=== PATIENT | female | born 1980 | race Caucasian/White ===

== ENCOUNTER 2017-10-29 11:48 | Emergency (ER) | payer MEDICAID, SELFPAY ==
[2017-10-29 11:48] VITALS: BP 149/94; PULSE 98; RESP 14; TEMP 36.3; BMI 31.0
--- NOTE | 2017-10-29 12:03 | ED.DCSUM_ITS ---
- ER Visit Summary Date of Service: 10/29/17 Chief Complaint: Left eye pain History of Present Illness: The patient is a 36 F presents to the emergency department left eye pain. Patient put her contacts in on . She fell asleep with them in. When she woke Monday she took them out. She really had only minimal pain in the left eye. Over the past 2 days the pain is worsened. The eyes become red. She denies any drainage. She denies any visual change. She denies any definitive injury. Physical Examination: Exam is relatively unremarkable. Tetracaine and fluorescein were instilled. The patient does have a small abrasion in the left eye at the 3 o'clock position. There is no ulceration. There is no Maddy sign. There is no cell or flare. There is normal combination. Anterior chamber is quiet. Test Results: [] Emergency Department Course and Treatment: Patient has evidence of corneal abrasion in the left eye. I did vocational rehabilitation counselor her to not wear contacts for the next 2 weeks. She will be placed on ciprofloxacin drops. She will be given ophthalmology follow-up as an outpatient. She is comfortable this plan of care. Treatment Plan: [] Disposition: Discharge Impression: 1. Left corneal abrasion This note was generated with [employer] dictation software. It may contain incorrect words, spelling, and punctuation that were not noted in review of the chart prior to signing ED Disposition - Plan for ED Patient: Chief Complaint: Eye Problem Instructions: ED Eye Injury Corneal Abrasion Prescriptions: Ciprofloxacin 0.3% [Ciloxan] 2 drp LEFT EYE Q4 #1 bottle Referrals: Josué Mota MD [STAFF PHYSICIAN] -
[2017-10-29] MEDS: Ciprofloxacin 0.3% 2.5ml Bottle 2 DRP OPHTHALMIC (12:07)
== END 2017-10-29 12:31 | disposition home or self-care (01) ==
LOC: ED 12:27
PROVIDERS: Emergency Provider Emergency Medicine; Family Provider Family Medicine; PCP Family Medicine
DX: H18.822 Corneal disorder due to contact lens, left eye (principal)
CPT/HCPCS: 99283; A4216

== ENCOUNTER 2017-12-13 19:25 | Emergency (ER) | payer MEDICAID, SELFPAY ==
[2017-12-13 19:26] VITALS: BP 126/71; PULSE 102; RESP 16; TEMP 36.7; O2SAT 100; BMI 30.4
--- NOTE | 2017-12-13 19:36 | ED.RN ---
NO OLD EKGS IN MUSE.
[2017-12-13 19:37] VITALS: O2SAT 98
[2017-12-13 19:48] LABS: Absolute Lymphocyte Count 4.12 X10^3/ul (0.83-4.51); Absolute Neutrophil Count 5.3 X10^3/uL (2.0-7.7); Basophil# 0.06 X10^3/uL; Basophil% 0.6 % (0-1); Eosinophil# 0.32 X10^3/uL; Eosinophils% 2.9 % (0-5); Hematocrit 45.2 % (37-47); Hemoglobin 15.3 g/dl (12.0-15.0); Lymphocyte # 4.12 X10^3/ul (4.0); Lymphocyte % 37.8 % (19-41); Mean Corp Hgb Conc 33.8 g/gl (32-36); Mean Corpuscular Hgb 31.6 pg (27.0-32.0); Mean Corpuscular Volume 93.4 fL (81-99); Mean Platelet Vol. 11.1 fl (6.2-12.0); Monocyte# 1.07 X10^3/uL; Monocyte% 9.8 % (0-10); Neutrophil % 48.7 % (47-70); POSITIVE COUNT NO; POSITIVE DIFFERENTIAL NO; POSITIVE MORPHOLOGY NO; Platelet Count 258 K/mm3 (150-450); RBC Distribution Width SD 43.8 fl (35.1-43.9); Red Blood Count 4.84 M/mm3 (4.2-5.4); White Blood Count 10.9 K/mm3 (4.4-11.0)
--- NOTE | 2017-12-13 19:48 | ED.VISSUMM ---
- ER Visit Summary Date of Service: 12/13/17 Chief Complaint: Chest pain History of Present Illness: The patient is a 37 F who presents with chest pain that began this morning when she woke up. Patient states the pain is over the left upper chest. Patient states the pain is worse with bending forward and sitting from a lying position. Patient describes the pain as sharp and burning. Patient denies any radiation of the pain. Patient states she has had a cough but states she has a cough every day when she wakes up due to her smoking. Patient states she has had some palpitations throughout the day today. Patient denies any nausea or vomiting. Patient denies any diaphoresis. Patient denies any shortness of breath. Patient denies any fevers or chills. Cardiac risk factors include family history of coronary artery disease in her dad in his 40s and she is a smoker. Patient denies any PE risk factors. Physical Examination: Vital signs are stable. Patient is afebrile. Patient is in no acute distress. Oral mucosa is pink and moist. Neck is supple. Trachea is midline. There is no JVD or lymphadenopathy noted. Heart was regular rate and rhythm. Lungs are clear and equal bilaterally. There is good respiratory effort noted. Abdomen is soft. Bowel sounds are normal. There is no tenderness. Musculoskeletal there is reproducible tenderness of the left anterior chest wall. There is no edema or ecchymosis. The remaining physical exam is within normal limits. Test Results: EKG showed a normal sinus rhythm with a rate of 80. There are no acute ST or T-wave changes. Test x-ray does not show any acute cardiopulmonary process. CBC, basic metabolic profile, and troponin were obtained and were within normal limits with the exception of a mild hypokalemia of 3.3. Emergency Department Course and Treatment: Patient was given aspirin here. Patient has a PEBBLES score of 1 and a HEART score of 2. Patient is at low risk for acute cardiac event. This appears to be musculoskeletal in nature. Patient was given a prescription for Naprosyn. Patient was instructed to follow-up with her primary care physician in 5-7 days. Patient understood and was agreeable with the plan. All questions were answered. Disposition: Discharge home Impression: Chest pain This note was generated with [employer] dictation software. It may contain incorrect words, spelling, and punctuation that were not noted in review of the chart prior to signing ED Disposition - Plan for ED Patient: Disposition: Home or Assisted Living Chief Complaint: Chest Pain Diagnosis: Chest pain of uncertain etiology Instructions: ED Chest Pain Atypical Unkn Cause Prescriptions: Naproxen [Naprosyn] 500 mg PO BID PRN #20 tab Referrals: Reyes Loya MD [Primary Care Provider] -
[2017-12-13] MEDS: Aspirin 81 MG TAB.CHEW 324 MG PO (19:50)
[2017-12-13 20:04] LABS: Anion Gap 7 (5-15); BUN 10 mg/dL (7-18); BUN/Creat Ratio 12.5 RATIO (10-20); Calcium,Total 8.8 mg/dL (8.5-10.1); Chloride 103 mmol/L (98-107); EST Glomerular Filtration Rate 86 mL/min (>60); Est Glom Filt Rate - Afr Amer 104 mL/min (>60); Estimated Creatinine Clearance 86.64 ml/min; Glucose 83 mg/dL (74-106); Potassium 3.3 mmol/L (3.5-5.1); Sodium Level 139 mmol/L (136-145)
[2017-12-13 20:35] VITALS: BP 95/69; PULSE 80; RESP 20; O2SAT 95
[2017-12-13 21:04] VITALS: BP 96/69; PULSE 80; RESP 22; O2SAT 96
[2017-12-13 21:47] VITALS: BP 98/57; PULSE 82; RESP 16; O2SAT 96
== END 2017-12-13 21:48 | disposition home or self-care (01) ==
PROVIDERS: Emergency Provider Emergency Medicine; Family Provider Family Medicine; PCP Family Medicine
DX: R07.9 Chest pain, unspecified (principal); F17.200 Nicotine dependence, unspecified, uncomplicated; Z82.49 Family history of ischemic heart disease and other diseases of the circulatory system
CPT/HCPCS: 71045; 80048; 84484; 85025; 93005; 99285; A4216

== ENCOUNTER 2018-04-09 18:57 | Emergency (ER) | payer MEDICAID, SELFPAY ==
[2018-04-09 18:58] VITALS: BP 104/70; PULSE 95; RESP 18; TEMP 36.8; O2SAT 98; BMI 30.3
--- NOTE | 2018-04-09 19:28 | ED.VISSUMM ---
- ER Visit Summary Date of Service: 04/09/18 Chief Complaint: Right ear pain History of Present Illness: The patient is a 37 F presenting for evaluation secondary to right ear pain. Patient reports that she had development of right ear pain since yesterday after using Q-tips. She states that she has had this in the past and was associated with otitis externa. She denies drainage. She denies any fevers. She denies any upper respiratory symptoms. Physical Examination: Vital signs within normal limits. Patient has no mastoid tenderness. Right ear shows significant ear canal swelling, but it is not completely occluded. There is erythema of the canal with some mild clear drainage. TM appears normal. No evidence of malignant otitis externa Test Results: None indicated Emergency Department Course and Treatment: Patient presented with otitis externa. She will be treated with Cortisporin. Disposition: Discharge Impression: Otitis externa This note was generated with [employer] dictation software. It may contain incorrect words, spelling, and punctuation that were not noted in review of the chart prior to signing ED Disposition - Plan for ED Patient: Disposition: Home or Assisted Living Chief Complaint: Ear Problem Diagnosis: Otitis externa Instructions: ED Otitis Externa Referrals: Reyes Loya MD [Primary Care Provider] - As Needed
--- NOTE | 2018-04-09 19:32 | ED.DCSUM_ITS ---
- ER Visit Summary Date of Service: 04/09/18 Chief Complaint: Right ear pain History of Present Illness: The patient is a 37 F presenting for evaluation secondary to right ear pain. Patient reports that she had development of right ear pain since yesterday after using Q-tips. She states that she has had this in the past and was associated with otitis externa. She denies drainage. She denies any fevers. She denies any upper respiratory symptoms. Physical Examination: Vital signs within normal limits. Patient has no mastoid tenderness. Right ear shows significant ear canal swelling, but it is not completely occluded. There is erythema of the canal with some mild clear marshall inage. TM appears normal. No evidence of malignant otitis externa Test Results: None indicated Emergency Department Course and Treatment: Patient presented with otitis externa. She will be treated with Cortisporin. Disposition: Discharge Impression: Otitis externa This note was generated with [employer] dictation software. It may contain incorrect words, spelling, and punctuation that were not noted in review of the chart prior to signing ED Disposition - Plan for ED Patient: Disposition: Home or Assisted Living Chief Complaint: Ear Problem Diagnosis: Otitis externa Instructions: ED Otitis Externa Referrals: Reyes Loya MD [Primary Care Provider] - As Needed
[2018-04-09] MEDS: Neomycin Sulfate/Polymyxin/Hc Susp 10 ML Bottle 4 DRP OTIC (19:47)
--- OUTSIDE RECORDS SUMMARY | 2018-07-12 10:08 | XMS RPT_ITS ---
:1980 Author Organization [place] Care Team Providers Name Role Phone SAUL CHEW Attending Unavailable BRITT ALCARAZ (MIKALA) Referring Unavailable BRITT ALCARAZ (MIKALA) Attending Unavailable Reyes Loya Primary Care Unavailable Trevor Faustin Attending Unavailable Reyes Loya Primary Care Unavailable Trevor Koch Attending Unavailable Trevor Koch Attending Unavailable Reyes Loya Primary Care Unavailable Reyes Loya Primary Care Unavailable Andrea Og Attending Unavailable Jeffrey Gresham Attending Unavailable Jeffrey Gresham Referring Unavailable Reyes Loya Primary Care Unavailable PROBLEMS PROBLEMS DATE TYPE CONDITION / CODE ATTENDING STATUS SOURCE 04/12/2018 Unknown H60.503 - Trevor Koch Active Daniel Unspecified acute [facility] otitis externa, Repository bilateral / H60.503(ICD-10) PROCEDURES PROCEDURES No Procedure Records FoundRESULTS RESULTS Observed: 04/13/2018 Status: F Source: [place] CULTURE, EAR/MASTOID 10:15 AM [facility] Gram Stain Gram Stain Rare Red Blood Cells Rare Gram negative rods Ear/Mast Cult No growth in 48 hours. Cult, Anaerobic ORGANISM 1: Proprionibacterium acnes Performed By: #### M100.1100 #### [facility] [address] [place], [address] EMERGENCY DEPARTMENT Observed: 04/12/2018 Status: F Source: [place]ANI[place] SUMMARY 1:58 PM [facility] Medical Records Department [address] [place] [address] Emergency Department Summary 04/12/18 1210 MR#: [id number] Acct: [id number] Name: DEBBIE ACEVEDO Rep #: [id number] : 1980 37 From: Trevor Koch MD PCP: Reyes Loya MD Status: REG ER - ER Visit Summary Date of Service: 04/12/18 Chief Complaint: Bilateral ear pain History of Present Illness: The patient is a 37 F presents to the emergency department bilateral ear pain. The patient was actually seen her on Monday. At that time, she was diagnosed with an acute otitis externa of the right ear. She was placed on Ciprodex drops. She states that she has been using them but had some worsening pain. She went to urgent care on Monday. She was told to use drops in both ears and then she was started on Augmentin. Since starting Augmentin, her symptoms are worsened. States both ears are swollen. She is had pain behind her ears. She states it hurts to chew. It hurts to swallow. She does feel like she is had low-grade fevers. She has no history of immunosuppression. She has no history of diabetes. Physical Examination: Vital signs reviewed General: Well-nourished, well-developed Head: Normocephalic, atraumatic Eyes: Pupils equal and reactive, extraocular muscles intact Ears: Patient has swelling and congestion of bilateral canals consistent with otitis externa. There is no mastoid tenderness. There is no purulence or abscess. Neck, supple, no lymphadenopathy Heart: Regular rate and rhythm Respiratory: No distress, clear bilaterally Abdomen: Soft, nontender, nondistended, no peritoneal signs Back: Nontender Extremities: Nontender, no edema, no cords Skin: Normal color no rash Neuro: Alert and oriented, no focal or lateralizing deficits Test Results: 1. Bilateral otitis externa Emergency Department Course and Treatment: [The patient presents with bilateral ear pain. She had what seems to be mild otitis externa on the right ear on Monday. After starting the Cortisporin, her symptoms are markedly worsened. She states that she began to have some left ear pain and started the drops, and then it got much worse. I do suspect that she may be having a reaction to her Cortisporin drops. IV was established. Patient was given IV fluids and analgesics. She did have improvement of her symptoms. The patient underwent a CT of the posterior fossa. There is mild chronic mastoiditis, but no acute expanding infection. I do feel that she likely has an infectious process that is complicated by local reaction. Patient was given Levaquin. I am going to have her stop her drops and her Augmentin. I do feel that she needs Pseudomonas coverage. I am also going to give her outpatient ENT referral for follow-up. I do feel that she is safe for discharge. She is comfortable with this plan of care. Treatment Plan: [] Disposition: [] Impression: Discharge This note was generated with [employer] dictation software. It may contain incorrect words, spelling, and punctuation that were not noted in review of the chart prior to signing ED Disposition - Plan for ED Patient: Chief Complaint: Ear Problem Instructions: ED Otitis Externa Prescriptions: Hydrocodone Bitart/Apap 5-325 [Garland 5MG-325MG] 1 tab PO Q6H PRN PRN 3 Days #10 tab PRN Reason: Pain Levofloxacin [Levaquin] 750 mg PO DAILY #7 tab Referrals: Jeffrey Gresham MD [STAFF PHYSICIAN] - What to do if you have Problems For any increased pain, shortness of breath, bleeding, nausea or vomiting, chest pain, or any unexpected problems, contact your Primary Care Provider. Call [facility] ([phone]) or report to the closest Emergency Room. Call 911 if necessary. 04/12/18 5648 <Electronically signed by Trevor Koch MD> Date Trevor Koch MD Cosigner Signature (If Indicated): Date CC: Reyes Loya MD CBC W/DIFF, AUTOMATED Collected: 04/12/2018 Status: F Source: [place] 12:10 PM [facility] TYPE CODE TESTS RESULT OUT OF RANGE REFERENCE UNITS LAB L100.1000 4.4-11.0 K/mm3 High WBC 13.8 LAB L100.1200 4.2-5.4 M/mm3 Normal RBC 4.61 LAB L100.1300 12.0-15.0 g/dl Normal HGB 14.4 LAB L100.1400 37-47 % Normal HCT 42.9 LAB L100.1500 81-99 fL Normal MCV 93.1 LAB L100.1600 27.0-32.0 pg Normal MCH 31.2 LAB L100.1700 32-36 g/gl Normal MCHC 33.6 LAB L100.1810 11.6-14.6 % Normal RDW CV 13.4 LAB L100.1820 35.1-43.9 fl High RDW SD 44.5 LAB L100.1900 150-450 K/mm3 Normal PLT 270 LAB L100.2000 6.2-12.0 fl Normal MPV 11.0 LAB L100.2100 47-70 % High NEUT% 77.5 LAB L100.2200 19-41 % Low LY% 12.5 LAB L100.2300 0-10 % Normal MONO% 7.4 LAB L100.2400 0-5 % Normal EO% 2.2 LAB L100.2500 0-1 % Normal BASO% 0.2 LAB L100.2550 0.0-0.9 % Normal IM GRAN % 0.200 Result Comment: IG% - Immature Granulocytes (promyelocytes, myelocytes and metamyelocytes) > 1% indicates that a LEFT SHIFT is Present. LAB L100.2620 2.0-7.7 X10 3/uL High Absolute Neut 10.7 LAB L100.2720 0.83-4.51 X10 3/ul Normal Absolute Lymph 1.72 Performed By: #### L100.0100 #### [facility] [address] [place], [place], [address] BASIC METABOLIC Collected: 04/12/2018 Status: F Source: [place] PROFILE (BMP) 12:10 PM [facility] TYPE CODE TESTS RESULT OUT OF RANGE REFERENCE UNITS LAB L501.0100 74-106 mg/dL Normal GLU 94 Result Comment: Please note revised GLUCOSE reference range effective 2017. LAB L501.1000 7-18 mg/dL Normal BUN 10 LAB L501.1100 0.55-1.02 mg/dL Normal CREAT,SERUM 0.71 Result Comment: The validity of the calculated GFR AND GFRAA in patients over 70 years has not been determined. Clinical correlation is essential. LAB L501.1110 >60 mL/min Normal EST GFR 99 Result Comment: Non- GFR Calc LAB L501.1115 >60 mL/min Normal EST GFR - AA 120 Result Comment: GFR Calc LAB L501.1255 ml/min Normal Estimated CRCL 93.68 LAB L501.1300 10-20 RATIO Normal BUN/CRE 14.2 LAB L501.2200 8.5-10 mg/dL Low .1 CA 8.4 LAB L501.5300 136-14 mmol/L Normal 5 NA 140 LAB L501.5600 3.5-5. mmol/L Normal 1 K 3.9 LAB L501.5900 98-107 mmol/L High CL 110 LAB L501.6100 21.0-3 mmol/L Normal 2.0 CO2 24.0 LAB L501.6200 5-15 Normal GAP 6 Performed By: #### L500.2500 #### [facility] [address] [place], [address] ORB SELLA POST Observed: 04/12/2018 Status: F Source: [place] FOSSA EAR W/O 11:50 AM [facility] Imaging Services [address] [place] [address] Orb Sella Post Fossa Ear w/o MR#: [id number] Acct: [id number] Name: DEBBIE ACEVEDO Rep #: [id number] : 1980 F 37 From: Sky Sánchez MD PCP: Reyes Loya MD Status: REG ER Study: Orb Sella Post Fossa Ear w/o Date of Exam: 04/12/18 Exam# [id number] Ordering Dr: Trevor Koch MD STUDY: CT TEMPORAL BONES WITHOUT CONTRAST - ATTN: I.A.C. S REASON FOR EXAM: Female, 37 years old. 5 day history of bilateral ureters. Stiff neck. RADIATION DOSAGE (If Supplied By Facility): CTDIvol = ( 67.58 ) mGy, DLP = ( 717.63 ) mGycm TECHNIQUE: The patient was scanned in a multi detector CT scanner. Transaxial imaging was performed without the administration of intravenous contrast material. Sagittal and coronal images were reconstructed. Individualized dose optimization techniques were used for this CT. COMPARISON: None. FINDINGS: RIGHT TEMPORAL BONE Normal right internal auditory canal. Soft tissue density seen within the middle ear cavity. This extends to the region of the ossicles the middle year. This is suggestive of a cholesteatoma. Normal right cochlea and semicircular canals. Normal vestibular aqueduct. Normal right petrous carotid artery. Normal right jugular fossa. There are moderate inflammatory changes of the right mastoid air cells consistent with moderate chronic otomastoiditis. Normal right petrous apex. LEFT TEMPORAL BONE Normal left internal auditory canal. Normal visualized ossicles and tympanic cavity. Normal left cochlea and semicircular canals. Normal vestibular aqueduct. Normal left petrous carotid artery. Normal right jugular fossa. There are minimal scattered inflammatory changes of the left mastoid air cells consistent with mild chronic otomastoiditis. Normal left petrous apex. CT/Orb Sella Post Fossa Ear w/o IMPRESSION: Bilateral mastoiditis worse on the right side. Soft tissue density within the right middle ear cavity suggestive of cholesteatoma. Electronically Signed: Sky Sánchez MD at 13:39 EST Tel [phone], Service support , CC: Trevor Koch MD; Reyes Loya MD Mathematical Physicist: Signed EMERGENCY DEPARTMENT Observed: 04/10/2018 Status: F Source: [place] SUMMARY 12:19 AM [facility] Medical Records Department [address] [place] [address] Emergency Department Summary 04/09/181927 MR#: [id number] Acct: [id number] Name: DEBBIE ACEVEDO Rep #: [id number] : 1980 37 From: Trevor Faustin MD PCP: Reyes Loya MD Status: DEP ER - ER Visit Summary Date of Service: 04/09/18 Chief Complaint: Right ear pain History of Present Illness: The patient is a 37 F presenting for evaluation secondary to right ear pain. Patient reports that she had development of right ear pain since yesterday after using Q-tips. She states that she has had this in the past and was associated with otitis externa. She denies drainage. She denies any fevers. She denies any upper respiratory symptoms. Physical Examination: Vital signs within normal limits. Patient has no mastoid tenderness. Right ear shows significant ear canal swelling, but it is not completely occluded. There is erythema of the canal with some mild clear drainage. TM appears normal. No evidence of malignant otitis externa Test Results: None indicated Emergency Department Course and Treatment: Patient presented with otitis externa. She will be treated with Cortisporin. Disposition: Discharge Impression: Otitis externa This note was generated with [employer] dictation software. It may contain incorrect words, spelling, and punctuation that were not noted in review of the chart prior to signing ED Disposition - Plan for ED Patient: Disposition: Home or Assisted Living Chief Complaint: Ear Problem Diagnosis: Otitis externa Instructions: ED Otitis Externa Referrals: Reyes Loya MD [Primary Care Provider] - As Needed What to do if you have Problems For any increased pain, shortness of breath, bleeding, nausea or vomiting, chest pain, or any unexpected problems, contact your Primary Care Provider. Call [facility] ([phone]) or report to the closest Emergency Room. Call 911 if necessary. 04/10/18 0019 <Electronically signed by Trevor Faustin MD> Date Trevor Faustin MD Cosigner Signature (If Indicated): Date CC: Reyes Loya MD 12 LEAD ELECTROCARDIOGRAM Observed: 12/15/2017 Status: F Source: [place] 1:35 PM [facility] Cardiovascular Services [address] [place] [id number] 12 Lead EKG 12/13/17 1933 MR#: [id number] Acct: [id number] Name: DEBBIE ACEVEDO Rep #: [id number] : 1980 37 From: Alex Gold MD Attending Dr: Status: DEP ER Ordering Dr: Andrea Og DO Date: 12/13/17 Location: ED Sex: F C Admitted: Test Reason : CP Blood Pressure : / mmHG Vent. Rate : 080 BPM Atrial Rate : 080 BPM P-R Int : 132 ms QRS Dur : 082 ms QT Int : 370 ms P-R-T Axes : 023 037 -02 degrees QTc Int : 426 ms Normal sinus rhythm Nonspecific ST and T wave abnormality Abnormal ECG Confirmed by ALEX GOLD MD ([id number]), newspaper photo editor FIDELINA SHEA ([id number]) on 12/15/2017 1:35:05 PM Referred By: TAYO/CARITO Confirmed By:ALEX GOLD MD 12/15/17 1335 Date Alex Gold MD CC: Andrea Og DO; Reyes Loya MD Signed EMERGENCY DEPARTMENT Observed: 12/13/2017 Status: F Source: [place] SUMMARY 9:39 PM [facility] Medical Records Department [address] [place] [address] Emergency Department Summary 12/13/17 1948 MR#: [id number] Acct: [id number] Name: DEBBIE ACEVEDO Rep #: [id number] : 1980 37 From: Andrea Og DO PCP: Reyes Loya MD Status: REG ER - ER Visit Summary Date of Service: 12/13/17 Chief Complaint: Chest pain History of Present Illness: The patient is a 37 F who presents with chest pain that began this morning when she woke up. Patient states the pain is over the left upper chest. Patient states the pain is worse with bending forward and sitting from a lying position. Patient describes the pain as sharp and burning. Patient denies any radiation of the pain. Patient states she has had a cough but states she has a cough every day when she wakes up due to her smoking. Patient states she has had some palpitations throughout the day today. Patient denies any nausea or vomiting. Patient denies any diaphoresis. Patient denies any shortness of breath. Patient denies any fevers or chills. Cardiac risk factors include family history of coronary artery disease in her dad in his 40s and she is a smoker. Patient denies any PE risk factors. Physical Examination: Vital signs are stable. Patient is afebrile. Patient is in no acute distress. Oral mucosa is pink and moist. Neck is supple. Trachea is midline. There is no JVD or lymphadenopathy noted. Heart was regular rate and rhythm. Lungs are clear and equal bilaterally. There is good respiratory effort noted. Abdomen is soft. Bowel sounds are normal. There is no tenderness. Musculoskeletal there is reproducible tenderness of the left anterior chest wall. There is no edema or ecchymosis. The remaining physical exam is within normal limits. Test Results: EKG showed a normal sinus rhythm with a rate of 80. There are no acute ST or T-wave changes. Test x-ray does not show any acute cardiopulmonary process. CBC, basic metabolic profile, and troponin were obtained and were within normal limits with the exception of a mild hypokalemia of 3.3. Emergency Department Course and Treatment: Patient was given aspirin here. Patient has a PEBBLES score of 1 and a HEART score of 2. Patient is at low risk for acute cardiac event. This appears to be musculoskeletal in nature. Patient was given a prescription for Naprosyn. Patient was instructed to follow-up with her primary care physician in 5-7 days. Patient understood and was agreeable with the plan. All questions were answered. Disposition: Discharge home Impression: Chest pain This note was generated with [employer] dictation software. It may contain incorrect words, spelling, and punctuation that were not noted in review of the chart prior to signing ED Disposition - Plan for ED Patient: Disposition: Home or Assisted Living Chief Complaint: Chest Pain Diagnosis: Chest pain of uncertain etiology Instructions: ED Chest Pain Atypical Unkn Cause Prescriptions: Naproxen [Naprosyn] 500 mg PO BID PRN #20 tab Referrals: Reyes Loya MD [Primary Care Provider] - What to do if you have Problems For any increased pain, shortness of breath, bleeding, nausea or vomiting, chest pain, or any unexpected problems, contact your Primary Care Provider. Call [facility] ([phone]) or report to the closest Emergency Room. Call 911 if necessary. 12/13/172138 <Electronically signed by Andrea Og DO> Date Andrea Og DO Cosigner Signature (If Indicated): Date CC: Reyes Loya MD CBC W/DIFF, AUTOMATED Collected: 12/13/2017 Status: F Source: [place] 7:35 PM [facility] TYPE CODE TESTS RESULT OUT OF RANGE REFERENCE UNITS LAB L100.1000 4.4-11.0 K/mm3 Normal WBC 10.9 LAB L100.1200 4.2-5.4 M/mm3 Normal RBC 4.84 LAB L100.1300 12.0-15.0 g/dl High HGB 15.3 LAB L100.1400 37-47 % Normal HCT 45.2 LAB L100.1500 81-99 fL Normal MCV 93.4 LAB L100.1600 27.0-32.0 pg Normal MCH 31.6 LAB L100.1700 32-36 g/gl Normal MCHC 33.8 LAB L100.1810 11.6-14.6 % Normal RDW CV 13.0 LAB L100.1820 35.1-43.9 fl Normal RDW SD 43.8 LAB L100.1900 150-450 K/mm3 Normal PLT 258 LAB L100.2000 6.2-12.0 fl Normal MPV 11.1 LAB L100.2100 47-70 % Normal NEUT% 48.7 LAB L100.2200 19-41 % Normal LY% 37.8 LAB L100.2300 0-10 % Normal MONO% 9.8 LAB L100.2400 0-5 % Normal EO% 2.9 LAB L100.2500 0-1 % Normal BASO% 0.6 LAB L100.2550 0.0-0.9 % Normal IM GRAN % 0.200 Result Comment: IG% - Immature Granulocytes (promyelocytes, myelocytes and metamyelocytes) > 1% indicates that a LEFT SHIFT is Present. LAB L100.2620 2.0-7.7 X10 3/uL Normal Absolute Neut 5.3 LAB L100.2720 0.83-4.51 X10 3/ul Normal Absolute Lymph 4.12 Performed By: #### L100.0100 #### [facility] [address] [place], [address] CHEST 1 VIEW Observed: 12/13/2017 Status: F Source: [place] (PORTABLE) 7:35 PM [facility] Imaging Services [address] [place] [address] Chest 1 View (Portable) MR#: [id number] Acct: [id number] Name: DEBBIE ACEVEDO Rep #: [id number] : 1980 F 37 From: Fabien Wallace MD PCP: Reyes Loya MD Status: REG ER Study: Chest 1 View (Portable) Date of Exam: 12/13/17 Exam# [id number] Ordering Dr: Andrea Og DO STUDY: X-RAY CHEST REASON FOR EXAM: Female, 37 years old. Chest pain TECHNIQUE: Frontal view of the chest COMPARISON: None. FINDINGS: The lungs are clear. There are no pleural effusions. There is no pneumothorax. The heart is normal in size. The visualized osseous structures are within normal limits. RAD/Chest 1 View (Portable) IMPRESSION: No acute thoracic pathology. Electronically Signed: Fabien Wallace, at 19:51 EDT Tel , Service support , CC: Andrea Og DO; Reyes Loya MD Mathematical Physicist: Signed BASIC METABOLIC Collected: 12/13/2017 Status: F Source: [place] PROFILE (BMP) 7:35 PM [facility] TYPE CODE TESTS RESULT OUT OF RANGE REFERENCE UNITS LAB L501.0100 74-106 mg/dL Normal GLU 83 Result Comment: Please note revised GLUCOSE reference range effective 2017. LAB L501.1000 7-18 mg/dL Normal BUN 10 LAB L501.1100 0.55-1.02 mg/dL Normal CREAT,SERUM 0.80 Result Comment: The validity of the calculated GFR AND GFRAA in patients over 70 years has not been determined. Clinical correlation is essential. LAB L501.1110 >60 mL/min Normal EST GFR 86 Result Comment: Non- GFR Calc LAB L501.1115 >60 mL/min Normal EST GFR - AA 104 Result Comment: GFR Calc LAB L501.1255 ml/min Normal Estimated CRCL 86.64 LAB L501.1300 10-20 RATIO Normal BUN/CRE 12.5 LAB L501.2200 8.5-10 mg/dL Normal .1 CA 8.8 LAB L501.5300 136-14 mmol/L Normal 5 NA 139 LAB L501.5600 3.5-5. mmol/L Low 1 K 3.3 LAB L501.5900 98-107 mmol/L Normal CL 103 LAB L501.6100 21.0-3 mmol/L Normal 2.0 CO2 29.0 LAB L501.6200 5-15 Normal GAP 7 Performed By: #### L500.2500, L501.4010 #### [facility] [address] [place], [address] TROPONIN-I Collected: 12/13/2017 Status: F Source: [place] 7:35 PM [facility] TYPE CODE TESTS RESULT OUT OF RANGE REFERENCE UNITS LAB L501.4010 <0.045 ng/mL Normal < 0.015 TROPONIN-I Result Comment: TROPONIN-I EXPECTED VALUES <0.045 Negative 0.045 - 0.590 Consistent with Cardiac Damage > OR = 0.600 Critical Value Not every elevated troponin is indicative of PA. These values should be used with clinical judgement in examining the patient's clinical picture for diagnosis. To establish a diagnosis of PA versus myocardial injury, there must be a demonstrated rise and/or fall in the troponin values, in addition to ischemic symptoms, EKG changes, new regional wall motion abnormality, and/or angiographical evidence. PLEASE NOTE: REFERENCE RANGES EDITED 17 Performed By: #### L500.2500, L501.4010 #### [facility] [address] [place], [address] EMERGENCY DEPARTMENT Observed: 10/29/2017 Status: F Source: [place] SUMMARY 12:28 PM [facility] Medical Records Department [address] [place] [address] [place] [address] Emergency Department Summary 10/29/17 1201 MR#: [id number] Acct: [id number] Name: DEBBIE ACEVEDO Rep #: [id number] : 1980 36 From: Trevor Koch MD PCP: Reyes Loya MD Status: REG ER - ER Visit Summary Date of Service: 10/29/17 Chief Complaint: Left eye pain History of Present Illness: The patient is a 36 F presents to the emergency department left eye pain. Patient put her contacts in on . She fell asleep with them in. When she woke Monday she took them out. She really had only minimal pain in the left eye. Over the past 2 days the pain is worsened. The eyes become red. She denies any drainage. She denies any visual change. She denies any definitive injury. Physical Examination: Exam is relatively unremarkable. Tetracaine and fluorescein were instilled. The patient does have a small abrasion in the left eye at the 3 o'clock position. There is no ulceration. There is no Maddy sign. There is no cell or flare. There is normal combination. Anterior chamber is quiet. Test Results: [] Emergency Department Course and Treatment: Patient has evidence of corneal abrasion in the left eye. I did field counsel her to not wear contacts for the next 2 weeks. She will be placed on ciprofloxacin drops. She will be given ophthalmology follow- up as an outpatient. She is comfortable this plan of care. Treatment Plan: [] Disposition: Discharge Impression: 1. Left corneal abrasion This note was generated with [employer] dictation software. It may contain incorrect words, spelling, and punctuation that were not noted in review of the chart prior to signing ED Disposition - Plan for ED Patient: Chief Complaint: Eye Problem Instructions: ED Eye Injury Corneal Abrasion Prescriptions: Ciprofloxacin 0.3% [Ciloxan] 2 drp LEFT EYE Q4 #1 bottle Referrals: Josué Mota MD [STAFF PHYSICIAN] - What to do if you have Problems For any increased pain, shortness of breath, bleeding, nausea or vomiting, chest pain, or any unexpected problems, contact your Primary Care Provider. Call [facility] ([phone]) or report to the closest Emergency Room. Call 911 if necessary. 10/29/17 1228 <Electronically signed by Trevor Koch MD> Date Trevor Koch MD Cosigner Signature (If Indicated): Date CC: Reyes Loya MD PROGRESS Observed: 09/07/2017 Status: COMPLETED Source: [place] 1:37 PM [facility] REPOSITORY HNO ID: [id number] Author: Saul Chew Service: (none) Author Type: Physician Type: Progress Notes Filed: 09/07/2017 1:40 PM Note Text: A normal sized anteverted uterus with the measurements shown below. The endometrial echo measures 12.8 mm. The endometrial cavity appears normal. The myometrium appears normal. The right ovary appears normal. The left ovary appears normal. There is no free fluid in the cul de sac IMPRESSION: Normal pelvic ultrasound CNOV Observed: 08/18/2017 Status: COMPLETED Source: [place] 2:45 PM [facility] REPOSITORY Office Visit (WOOB) DEBBIE ACEVEDO ([id number]) 1980 F NFR Date Time Provider Department 08/18/17 2:45 PM BRITT ALCARAZ ([facility]) WOOB During your visit today, we recorded the following information about you: Blood pressure Weight Last Period 136/80 82.6 kg 07/19/17 Britt Alcaraz APRN.CNM 08/19/2017 7:12 PM Signed Debbie Pierson Curtis is a 36 year old female who presents for problem visit reporting midpelvic to LLQ pain cyclically 10 days before onset of menses for 8 year(s). HPI: Patient reports over last 8 years she has had stomach/lower abdominal pain. Had ex-lap surgery by Dr. Scruggs in [facility] many years ago and scar tissue from her previous c-sections that was removed. 1st and 3rd children were LTCS, 2nd child was a . Patient notes following that surgery that she had a TVUS done that was negative. Patient has also seen a [facility] GI specialist for endoscopy procedure to rule out upper GI issues for pain and those results were also negative. Reports pain about 10 days prior to her period. Feelings of stiffness ad bloating in the bottom part of her abdomen. No vaginal discharge or BTB noted. Very heavy periods noted by the patient, though they have been heavy for quite a while. Discussed Tylenol and Ibuprofen use, patient has tried these medication sometimes and they would help. Patient denies that she has any pain today. Patient notes a history of ovarian cysts in her remote past, patient has not had an ultrasound recently to assess the possibility of cysts. Patient reports bowel movements every other day, no other GI issues reported. PAST MEDICAL HISTORY Diagnosis Date - Stomach pain PAST SURGICAL HISTORY Procedure Laterality Date - DELIVERY ONLY , low cervical - EGD W/O OR W/BRUSH/WASH 10/17/13 EGD - L'SCOPE DX W/WO BRUSHINGS/WASHINGS Laparoscopy - REMOVAL OF TONSILS,<12 Y/O Tonsillectomy FAMILY HISTORY Problem Relation Age of Onset - Diabetes Father - Coronary Artery Disease Father [place] - Cancer Father 65 lung- smoker Social History Marital status: Single Spouse name: Years of education: Number of children: 3 Occupational History Occupation Employer Comment [employer] Social History Main Topics Smoking status: Current Every Day Smoker Packs/day: 0.50 Years: 6.00 Types: Cigarettes Last attempt to quit: 02/10/2006 Smokeless status: Never Used Alcohol use: No Drug use: No Sexual activity: Yes control/protection: None No current outpatient prescriptions on file. No current facility-administered medications for this visit. Allergies As of Date: 08/18/2017 (No Known Allergies) Fully Assessed 08/14/2017 REVIEW OF SYSTEMS Abdomen: No bloating, early satiety, indigestion, or increased flatulence. No abdominal pain, nausea, vomiting, diarrhea, or constipation. Bladder: No dysuria, gross hematuria, urinary frequency, urinary urgency, or incontinence. Breast: No breast lumps, nipple d/c, overlying skin changes, redness or skin retraction. Expanded ROS: PROFESSIONAL NURSE: Negative for abnormal vaginal bleeding, abnormal vaginal discharge or SEE HPI Allergies and current medication updated:Yes EXAM: BP 136/80 Wt 182 lb 3.2 oz (82.6kg) LMP 07/19/2017 GENERAL: pleasant, female in no apparent distress HEENT: Normocephalic, atraumatic, mucus membranes moist and no lesions NECK: Supple, full range of motion, no adenopathy and thyroid normal DERMATOLOGY: Normal, without lesions, non-icteric and non-hirsute BREAST: deferred CHEST: Normal inspiratory effort Regular rate and rhythm ABDOMEN: soft, non-tender and no masses PELVIC: deferred BIMANUAL: deferred NEURO: alert and oriented x3,exam grossly non-focal EXTREMITIES: normal ASSESSMENT AND PLAN: Encounter Diagnosis ICD-10-CM 1. Chronic pelvic pain in female R10.2 PELVIC US WHI G89.29 2. 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 2) Limited TVUS ordered to assess possibility of ovarian cysts as etiology for pelvic pain. 3) Discuss increase in fiber to help regulate bowel function. 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 Follow-up and Disposition History Recorded Encounter Status:Closed by BRITT ALCARAZ CNM on 08/19/17 PROGRESS Observed: 08/18/2017 Status: COMPLETED Source: [place] 2:44 PM [facility] REPOSITORY O ID: [id number] Author: Britt (Gentry) Nate Service: (none) Author Type: Board Runner Type: Progress Notes Filed: 08/19/2017 7:12 PM Note Text: Debbie Acevedo is a 36 year old female who presents for problem visit reporting midpelvic to LLQ pain cyclically 10 days before onset of menses for 8 year(s). HPI: Patient reports over last 8 years she has had stomach/lower abdominal pain. Had ex-lap surgery by Dr. Scruggs in [facility] many years ago and scar tissue from her previous c-sections that was removed. 1st and 3rd children were LTCS, 2nd child was a . Patient notes following that surgery that she had a TVUS done that was negative. Patient has also seen a [facility] GI specialist for endoscopy procedure to rule out upper GI issues for pain and those results were also negative. Reports pain about 10 days prior to her period. Feelings of stiffness ad bloating in the bottom part of her abdomen. No vaginal discharge or BTB noted. Very heavy periods noted by the patient, though they have been heavy for quite a while. Discussed Tylenol and Ibuprofen use, patient has tried these medication sometimes and they would help. Patient denies that she has any pain today. Patient notes a history of ovarian cysts in her remote past, patient has not had an ultrasound recently to assess the possibility of cysts. Patient reports bowel movements every other day, no other GI issues reported. PAST MEDICAL HISTORY Diagnosis Date - Stomach pain PAST SURGICAL HISTORY Procedure Laterality Date - DELIVERY ONLY , low cervical - EGD W/O OR W/BRUSH/WASH 10/17/13 EGD - L'SCOPE DX W/WO BRUSHINGS/WASHINGS Laparoscopy - REMOVAL OF TONSILS,<12 Y/O Tonsillectomy FAMILY HISTORY Problem Relation Age of Onset - Diabetes Father - Coronary Artery Disease Father [place] - Cancer Father 65 lung- smoker Social History Marital status: Single Spouse name: Years of education: Number of children: 3 Occupational History Occupation Employer Comment [employer] Social History Main Topics Smoking status: Current Every Day Smoker Packs/day: 0.50 Years: 6.00 Types: Cigarettes Last attempt to quit: 02/10/2006 Smokeless status: Never Used Alcohol use: No Drug use: No Sexual activity: Yes control/protection: None No current outpatient prescriptions on file. No current facility-administered medications for this visit. Allergies As of Date: 08/18/2017 (No Known Allergies) Fully Assessed 08/14/2017 REVIEW OF SYSTEMS Abdomen: No bloating, early satiety, indigestion, or increased flatulence. No abdominal pain, nausea, vomiting, diarrhea, or constipation. Bladder: No dysuria, gross hematuria, urinary frequency, urinary urgency, or incontinence. Breast: No breast lumps, nipple d/c, overlying skin changes, redness or skin retraction. Expanded ROS: PROFESSIONAL NURSE: Negative for abnormal vaginal bleeding, abnormal vaginal discharge or SEE HPI Allergies and current medication updated:Yes EXAM: BP 136/80 Wt 182 lb 3.2 oz (82.6kg) LMP 07/19/2017 GENERAL: pleasant, female in no apparent distress HEENT: Normocephalic, atraumatic, mucus membranes moist and no lesions NECK: Supple, full range of motion, no adenopathy and thyroid normal DERMATOLOGY: Normal, without lesions, non-icteric and non-hirsute BREAST: deferred CHEST: Normal inspiratory effort Regular rate and rhythm ABDOMEN: soft, non-tender and no masses PELVIC: deferred BIMANUAL: deferred NEURO: alert and oriented x3,exam grossly non-focal EXTREMITIES: normal ASSESSMENT AND PLAN: Encounter Diagnosis ICD-10-CM 1. Chronic pelvic pain in female R10.2 PELVIC US WHI G89.29 2. 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 2) Limited TVUS ordered to assess possibility of ovarian cysts as etiology for pelvic pain. 3) Discuss increase in fiber to help regulate bowel function. Britt Alcaraz APRN.CNM ALLERGIES ALLERGIES DATE TYPE / CODE NAME / CODE REACTION SEVERITY SOURCE 04/12/2018 Drug No Known Unknown [facility] Allergy/416 Allergies/W53322 Hospital 670138(SNOM 0388(RXNORM) Repository ED CT) Drug NO KNOWN [facility] Class/60073 ALLERGIES [facility] 1003(SNOMED Repository CT) ENCOUNTERS ENCOUNTERS ADMIT/DISCHARGE ACCOUNT ADMITTING ENCOUNTER LOCATION SOURCE NUMBER CLASS 04/13/2018 [id number] Ambulatory [facility] ing:LABSPEC Repository 04/12/2018/04/12/20 [id number] Emergency [address] ing:ED Repository 04/09/2018/04/09/20 [id number] Emergency [address] ing:ED Repository 12/13/2017/12/14/19 [id number] Emergency [address] ing:ED Repository 10/29/2017/10/30/19 [id number] Emergency [address] ing:ED Repository 09/07/2017/09/12/19 [id number] Ambulatory [address] Repository 08/18/2017/08/23/[id number] Repository PAYERS PAYERS ENCOUNTER GUARANTOR PAYER SUBSCRIBER SOURCE 04/13/2018 DEBBIE C Primary DEBBIE Dangelo Daniel [id number] NOLD Insurance:CARESOURCEP JACKSONDOB: [facility] Number: [id number] Hospital [address]Dew: [phone] [id number] Repository [phone] () Date:2018-04-13[address]ATTN: [place] [address]SO: 04/13/2018 Secondary NOT GIVENUNK Daniel Insurance:SELF PAY [facility] Number: Effective Repository Date:2018-04-13 04/12/2018 DEBBIE C Primary DEBBIE C Daniel [id number] NOLD Insurance:CARESOURCEP [place] HAUTEDOB: [facility] Number: [id number] Hospital [address]Pzt: 330 [id number] Repository [phone] () Date:2018-04-12[address]ATTN: [place] [address]SF: 04/12/2018 Secondary NOT GIVENUNK Daniel Insurance:SELF PAY [facility] Number: Effective Repository Date:2018-04-12 04/09/2018 DEBBIE C Primary DEBBIE C [place] [id number] NOLD Insurance:CARESOURCEP JACKSONDOB: [facility] Number: [id number] Hospital [address]Yhp: [phone]) [id number] Repository [phone] () Date:2018-04-09[address]ATTN: [place] [address]KM: 04/09/2018 Secondary NOT GIVENUNK [place] Insurance:SELF PAY [facility] Number: Effective Repository Date:2018-04-09 12/13/2017 DEBBIE C Primary DEBBIE C Daniel [id number] NOLD Insurance:CARESOURCEP JACKSONDOB: [facility] Number: [id number] Hospital [address]Rhz: [phone] [id number] Repository [phone] () Date:2017-12-13[address]ATTN: [place] [address]ZV: 12/13/2017 Secondary NOT GIVENUNK Daniel Insurance:SELF PAY [facility] Number: Effective Repository Date:2017-12-13 10/29/2017 DEBBIE PRESLEY555 Primary DEBBIE [place] [facility], Insurance:CARESOURCEP [facility]: [facility] [address]Oih: [facility] Number: [id number] Hospital [id number] Repository (HP) Date:2017-10-29[address]ATTN: [place] [address]FD: 10/29/2017 Secondary NOT GIVENUNK Daniel Insurance:SELF PAY [facility] Number: Effective Repository Date:2017-10-29
== END 2018-04-09 19:50 | disposition home or self-care (01) ==
PROVIDERS: Emergency Provider Emergency Medicine; Family Provider Family Medicine; PCP Family Medicine
DX: H60.91 Unspecified otitis externa, right ear (principal); Z72.0 Tobacco use
CPT/HCPCS: 99282

== ENCOUNTER 2018-04-12 11:30 | Emergency (ER) | payer MEDICAID, SELFPAY ==
[2018-04-12 11:35] VITALS: BP 139/75; PULSE 94; RESP 17; TEMP 36.9; O2SAT 98
--- NOTE | 2018-04-12 11:49 | CT_ITS ---
STUDY: CT TEMPORAL BONES WITHOUT CONTRAST - ATTN: I.A.C. S REASON FOR EXAM: Female, 37 years old. 5 day history of bilateral ureters. Stiff neck. RADIATION DOSAGE (If Supplied By Facility): CTDIvol = ( 67.58 ) mGy, DLP = ( 717.63 ) mGycm TECHNIQUE: The patient was scanned in a multi detector CT scanner. Transaxial imaging was performed without the administration of intravenous contrast material. Sagittal and coronal images were reconstructed. Individualized dose optimization techniques were used for this CT. COMPARISON: None. FINDINGS: RIGHT TEMPORAL BONE Normal right internal auditory canal. Soft tissue density seen within the middle ear cavity. This extends to the region of the ossicles the middle year. This is suggestive of a cholesteatoma. Normal right cochlea and semicircular canals. Normal vestibular aqueduct. Normal right petrous carotid artery. Normal right jugular fossa. There are moderate inflammatory changes of the right mastoid air cells consistent with moderate chronic otomastoiditis. Normal right petrous apex. LEFT TEMPORAL BONE Normal left internal auditory canal. Normal visualized ossicles and tympanic cavity. Normal left cochlea and semicircular canals. Normal vestibular aqueduct. Normal left petrous carotid artery. Normal right jugular fossa. There are minimal scattered inflammatory changes of the left mastoid air cells consistent with mild chronic otomastoiditis. Normal left petrous apex. CT/Orb Sella Post Fossa Ear w/o IMPRESSION: Bilateral mastoiditis worse on the right side. Soft tissue density within the right middle ear cavity suggestive of cholesteatoma. Electronically Signed: Sky Sánchez MD at 13:39 EST Tel [phone], Service support ,
[2018-04-12 12:00] VITALS: BP 125/79; PULSE 71; RESP 16; TEMP 36.6; O2SAT 97
--- NOTE | 2018-04-12 12:10 | ED.VISSUMM ---
- ER Visit Summary Date of Service: 04/12/18 Chief Complaint: Bilateral ear pain History of Present Illness: The patient is a 37 F presents to the emergency department bilateral ear pain. The patient was actually seen her on Monday. At that time, she was diagnosed with an acute otitis externa of the right ear. She was placed on Ciprodex drops. She states that she has been using them but had some worsening pain. She went to urgent care on Monday. She was told to use drops in both ears and then she was started on Augmentin. Since starting Augmentin, her symptoms are worsened. States both ears are swollen. She is had pain behind her ears. She states it hurts to chew. It hurts to swallow. She does feel like she is had low-grade fevers. She has no history of immunosuppression. She has no history of diabetes. Physical Examination: Vital signs reviewed General: Well-nourished, well-developed Head: Normocephalic, atraumatic Eyes: Pupils equal and reactive, extraocular muscles intact Ears: Patient has swelling and congestion of bilateral canals consistent with otitis externa. There is no mastoid tenderness. There is no purulence or abscess. Neck, supple, no lymphadenopathy Heart: Regular rate and rhythm Respiratory: No distress, clear bilaterally Abdomen: Soft, nontender, nondistended, no peritoneal signs Back: Nontender Extremities: Nontender, no edema, no cords Skin: Normal color no rash Neuro: Alert and oriented, no focal or lateralizing deficits Test Results: 1. Bilateral otitis externa Emergency Department Course and Treatment: [The patient presents with bilateral ear pain. She had what seems to be mild otitis externa on the right ear on Monday. After starting the Cortisporin, her symptoms are markedly worsened. She states that she began to have some left ear pain and started the drops, and then it got much worse. I do suspect that she may be having a reaction to her Cortisporin drops. IV was established. Patient was given IV fluids and analgesics. She did have improvement of her symptoms. The patient underwent a CT of the posterior fossa. There is mild chronic mastoiditis, but no acute expanding infection. I do feel that she likely has an infectious process that is complicated by local reaction. Patient was given Levaquin. I am going to have her stop her drops and her Augmentin. I do feel that she needs Pseudomonas coverage. I am also going to give her outpatient ENT referral for follow-up. I do feel that she is safe for discharge. She is comfortable with this plan of care. Treatment Plan: [] Disposition: [] Impression: Discharge This note was generated with [employer] dictation software. It may contain incorrect words, spelling, and punctuation that were not noted in review of the chart prior to signing ED Disposition - Plan for ED Patient: Chief Complaint: Ear Problem Instructions: ED Otitis Externa Prescriptions: Hydrocodone Bitart/Apap 5-325 [Mead 5MG-325MG] 1 tab PO Q6H PRN PRN 3 Days #10 tab PRN Reason: Pain Levofloxacin [Levaquin] 750 mg PO DAILY #7 tab Referrals: Jeffrey Gresham MD [STAFF PHYSICIAN] -
[2018-04-12] MEDS: 0.9% Normal Saline 1,000 ML 1000 ML IV (12:16)
[2018-04-12] MEDS: Ketorolac 15 MG/ML Vial IV (12:16)
[2018-04-12 12:32] LABS: Absolute Lymphocyte Count 1.72 X10^3/ul (0.83-4.51); Absolute Neutrophil Count 10.7 X10^3/uL (2.0-7.7); Basophil# 0.03 X10^3/uL; Basophil% 0.2 % (0-1); Eosinophil# 0.31 X10^3/uL; Eosinophils% 2.2 % (0-5); Hematocrit 42.9 % (37-47); Hemoglobin 14.4 g/dl (12.0-15.0); Lymphocyte # 1.72 X10^3/ul (4.0); Lymphocyte % 12.5 % (19-41); Mean Corp Hgb Conc 33.6 g/gl (32-36); Mean Corpuscular Hgb 31.2 pg (27.0-32.0); Mean Corpuscular Volume 93.1 fL (81-99); Monocyte# 1.02 X10^3/uL; Monocyte% 7.4 % (0-10); Neutrophil % 77.5 % (47-70); Platelet Count 270 K/mm3 (150-450); RBC Distribution Width CV 13.4 % (11.6-14.6); RBC Distribution Width SD 44.5 fl (35.1-43.9); Red Blood Count 4.61 M/mm3 (4.2-5.4); White Blood Count 13.8 K/mm3 (4.4-11.0)
[2018-04-12 12:34] LABS: POSITIVE COUNT NO; POSITIVE DIFFERENTIAL NO; POSITIVE MORPHOLOGY NO
[2018-04-12 12:41] LABS: Anion Gap 6 (5-15); BUN 10 mg/dL (7-18); BUN/Creat Ratio 14.2 RATIO (10-20); Calcium,Total 8.4 mg/dL (8.5-10.1); Chloride 110 mmol/L (98-107); Creatinine, Serum 0.71 mg/dL (0.55-1.02); EST Glomerular Filtration Rate 99 mL/min (>60); Est Glom Filt Rate - Afr Amer 120 mL/min (>60); Estimated Creatinine Clearance 93.68 ml/min; Glucose 94 mg/dL (74-106); Potassium 3.9 mmol/L (3.5-5.1); Sodium Level 140 mmol/L (136-145)
[2018-04-12 13:00] VITALS: BP 111/65; PULSE 85; RESP 14; TEMP 36.5; O2SAT 96
[2018-04-12] MEDS: levoFLOXacin IV 750 MG/150 ML BAG 100 MG IV (13:11)
[2018-04-12 14:00] VITALS: BP 116/68; PULSE 79; RESP 12; TEMP 36.6; O2SAT 98
[2018-04-12 15:31] VITALS: BP 114/76; PULSE 77; RESP 16; TEMP 36.6; O2SAT 97
== END 2018-04-12 15:34 | disposition home or self-care (01) ==
PROVIDERS: Emergency Provider Emergency Medicine; Family Provider Family Medicine; PCP Family Medicine
DX: H60.503 Unspecified acute noninfective otitis externa, bilateral (principal); H70.13 Chronic mastoiditis, bilateral; Z72.0 Tobacco use
CPT/HCPCS: 70480; 80048; 85025; 96361; 96365; 96366; 96375; 99283; J7030; J7050; A4216

== ENCOUNTER → 2018-04-13 15:35 | Outpatient (CLI) | payer MEDICAID, SELFPAY | PROVIDERS: Family Provider Family Medicine; PCP Family Medicine; Referring Provider Otolaryngology; Visit Provider Otolaryngology | DX: H60.91 Unspecified otitis externa, right ear (principal) | CPT/HCPCS: 87070; 87075; 87077; 87205 ==

== ENCOUNTER 2018-09-20 15:55 | Emergency (ER) | payer MEDICAID, SELFPAY ==
[2018-09-20 15:56] VITALS: BP 113/73; PULSE 106; RESP 16; TEMP 36.7; O2SAT 97; BMI 28.0
--- NOTE | 2018-09-20 16:46 | US_ITS ---
STUDY: ABDOMINAL ULTRASOUND - RIGHT UPPER QUADRANT REASON FOR VISIT: Female, 37 years old. Right upper quadrant pain. TECHNIQUE: Ultrasound evaluation of the right upper quadrant was performed with real-time and static ramirez-scale imaging. TECHNICAL QUALITY: Adequate. COMPARISON: CT abdomen and pelvis July 03, 2013 FINDINGS: Liver: The liver measures 18.7 cm. There is normal echogenicity of the liver. The bile ducts are within normal limits. There is hepatic color flow. The direction of portal flow is hepatopetal. There is no demonstrated mass lesion. Gallbladder: Normal distended gallbladder. The gallbladder wall measures 3 mm. There is a negative sonographic Goodwin's sign. There is no pericholecystic fluid. There are no gallstones. Common Bile Duct (C.B.D.): The common bile duct measures 3 mm. Pancreas: Normal size of the head, body and tail of the pancreas. There is normal echogenicity of the pancreas. There is no demonstrated pancreatic mass or cyst. Right Kidney: Normal size of the right kidney. The right kidney measures 10.8 x 4.4 x 4.3 cm. Normal renal cortex. The right cortex measures 1.7 cm. There is no demonstrated renal mass or cyst. There is no right hydronephrosis. Additional scanning in the area of the patient's pain in the right abdomen identified some nonspecific, partially gas-filled bowel, but no other sonographic abnormality. US/Gallbladder IMPRESSION: Normal right upper quadrant ultrasound examination. Electronically Signed: Breezy Shaw MD at 17:46 EDT , Service support ,
--- NOTE | 2018-09-20 16:47 | ED.VIS.GEN ---
History of Present Illness Chief Complaint: Abd Pain Informant: Patient Onset: Today Narrative: Progressive abdominal pain starting epigastric region since 6:30 AM this morning. Symptoms started after drinking coffee. Pain progressed to the right side. No current nausea or vomiting. No diarrhea. No urinary symptoms. Last menstrual. 2 weeks ago. States had abdominal pain in the past however not like this. States may have to been told she has had a gallstone from an ultrasound a year ago. No fevers. In addition states she has been on prednisone for the past week with 1 day left due to a rash. That rash has improved. Patient no other complaints. Reviewing records, there is no ultrasound report in the system for the patient. She had a CT scan abdomen pelvis back in 2013. Prior similar symptoms: No Past Medical History - Allergies and Home Meds Allergies/Adverse Reactions: Allergies No Known Allergies Allergy (Verified 09/20/18 15:57) Primary Care Physician: Reyes Loya MD [Primary Care Provider] - Smoking Status: Current every day smoker Review of Systems General: Denies: Chills, Fever, Sweats Eyes: Denies: Visual changes - bilaterally, Diplopia ENT: Denies: Rhinorrhea, Sore throat Cardiovascular: Denies: Chest pain, Palpitations Respiratory: Denies: Dyspnea, Cough, Dyspnea on exertion Gastrointestinal: Reports: Abdominal pain. Denies: Nausea, Vomiting, Diarrhea, Melena, Hematochezia Genitourinary: Denies: Dysuria, Hematuria, Frequency Musculoskeletal: Denies: Back pain, Extremity Pain Skin: Denies: Rash, Wounds Neurological: Denies: Headache, Weakness, Numbness Physical Exam Vital Signs/Narrative: Vital Signs Temp Pulse Resp BP Pulse Ox 09/20/18 15:56 98.0 F 106 H 16 113/73 97 Inital Vital Signs reviewed: Yes General: Well nourished - History of, Well developed, No Acute Distress Head: Normocephalic, Atraumatic Eyes: Perrl, EOMI ENT: Moist mucous membranes, No rhinorrhea Neck: Supple, Nontender Cardiovascular: Regular rate, Regular rhythm, No murmurs Respiratory: No distress, CTA bilaterally, Chest nontender Abdomen: Soft, Nondistended, Normal bowel sounds, Tender, - - Tender palpation primary right upper quadrant however also epigastric mild right lower quadrant. Back: Nontender, Normal Inspection Extremities: Nontender, No edema Skin: Normal color, No rash Neurological: Alert, Oriented x3, Cranial nerves II-XII grossly intact, Normal Strength, Normal Sensation Psychological: Normal affect, Normal Mood Diagnostic/Tx/Re-eval Abnormal Lab Results 09/20/18 09/20/18 09/20/18 16:50 16:50 16:53 WBC 12.8 H RBC 4.79 Hgb 15.1 H Hct 44.2 MCV 92.3 MCH 31.5 MCHC 34.2 RDW 14.1 RDW Differential 47.5 H Plt Count 253 MPV 10.8 Immature Gran % (Auto) 0.200 Neut % (Auto) 85.1 H Lymph % (Auto) 8.3 L Elliott % (Auto) 5.7 Eos % (Auto) 0.5 Baso % (Auto) 0.2 Absolute Neuts (auto) 10.9 H Absolute Lymphs (auto) 1.07 Total Counted Not Reportable Sodium 137 Potassium 4.1 Chloride 106 Carbon Dioxide 25.0 Anion Gap 6 BUN 14 Creatinine 0.85 Estim Creat Clear Calc 81.54 Est GFR (MDRD) Af Amer 96 Est GFR (MDRD) Non-Af 79 BUN/Creatinine Ratio 16.4 Glucose 111 H Calcium 8.3 L Total Bilirubin 0.30 Direct Bilirubin 0.06 AST 7 L ALT 17 Alkaline Phosphatase 86 Total Protein 7.4 Albumin 3.5 Globulin 3.9 Lipase 112 Urine Test Negative Right upper quadrant ultrasound: Negative - Medical Decision Making Exam tender right upper quadrant epigastric. Labs stable ultrasound right upper quadrant negative. Patient's recent history currently being on steroids could cause of abdominal cramping sensations. She states she only has 1 dose left which she will stop. Rash has improved. She was treated with Protonix initially. Symptoms were improving. On reevaluation her abdomen at 1814, symptoms improved with no pain. Discussed with any localizing pain that may worsen develop fevers to return for reevaluation. Otherwise follow-up as an outpatient. All questions were answered. ED Disposition - Plan for ED Patient: Disposition: Home or Assisted Living Diagnosis: Abdominal pain Instructions: ED Abdominal Pain Unkn Cause Referrals: Reyes Loya MD [Primary Care Provider] - 3-5 Days Additional Instructions: Labs and gallbladder work-up normal. Symptoms likely from your prednisone use. Stop your last dose. Monitor symptoms. If any worsening symptoms return otherwise follow-up with your doctor.
[2018-09-20] MEDS: 0.9% Normal Saline 1,000 ML 125 ML IV (16:58)
[2018-09-20 17:02] LABS: Absolute Lymphocyte Count 1.07 X10^3/ul (0.83-4.51); Absolute Neutrophil Count 10.9 X10^3/uL (2.0-7.7); Basophil# 0.03 X10^3/uL; Basophil% 0.2 % (0-1); Eosinophil# 0.06 X10^3/uL; Eosinophils% 0.5 % (0-5); Hematocrit 44.2 % (37-47); Hemoglobin 15.1 g/dl (12.0-15.0); Lymphocyte # 1.07 X10^3/ul (4.0); Lymphocyte % 8.3 % (19-41); Mean Corp Hgb Conc 34.2 g/gl (32-36); Mean Corpuscular Hgb 31.5 pg (27.0-32.0); Mean Corpuscular Volume 92.3 fL (81-99); Mean Platelet Vol. 10.8 fl (6.2-12.0); Monocyte# 0.73 X10^3/uL; Monocyte% 5.7 % (0-10); Neutrophil # 10.93 X10^3/uL (2.7-7.7); Neutrophil % 85.1 % (47-70); POSITIVE COUNT NO; POSITIVE DIFFERENTIAL NO; POSITIVE MORPHOLOGY NO; Platelet Count 253 K/mm3 (150-450); RBC Distribution Width CV 14.1 % (11.6-14.6); RBC Distribution Width SD 47.5 fl (35.1-43.9); Red Blood Count 4.79 M/mm3 (4.2-5.4); White Blood Count 12.8 K/mm3 (4.4-11.0)
[2018-09-20 17:11] LABS: AST(SGOT) 7 U/L (15-37); Alanine Aminotransfer ALT/SGPT 17 U/L (13-56); Albumin, Serum 3.5 g/dL (3.2-5.0); Alkaline Phosphatase 86 U/L (45-117); Anion Gap 6 (5-15); BUN 14 mg/dL (7-18); BUN/Creat Ratio 16.4 RATIO (10-20); Bilirubin, Direct 0.06 mg/dL (0.00-0.30); Calcium,Total 8.3 mg/dL (8.5-10.1); Chloride 106 mmol/L (98-107); Creatinine, Serum 0.85 mg/dL (0.55-1.02); EST Glomerular Filtration Rate 79 mL/min (>60); Est Glom Filt Rate - Afr Amer 96 mL/min (>60); Estimated Creatinine Clearance 81.54 ml/min; Globulin 3.9 g/dL (2.2-4.2); Glucose 111 mg/dL (74-106); Lipase 112 U/L (73-393); Potassium 4.1 mmol/L (3.5-5.1); Protein, Total 7.4 g/dL (6.4-8.2); Sodium Level 137 mmol/L (136-145)
[2018-09-20 17:14] LABS: Internal QC Validated? YES +Cl - CLEAR BKGD; Pregnancy, Urine Negative Negative
[2018-09-20 18:17] VITALS: RESP 12
== END 2018-09-20 18:38 | disposition home or self-care (01) ==
PROVIDERS: Emergency Provider Emergency Medicine; Family Provider Family Medicine; PCP Family Medicine
DX: R10.11 Right upper quadrant pain (principal); R10.13 Epigastric pain; F17.200 Nicotine dependence, unspecified, uncomplicated
CPT/HCPCS: 76705; 80048; 80076; 81025; 83690; 85025; 96365; 99283; J7030; A4216

== ENCOUNTER 2019-02-17 20:07 | Emergency (ER) | payer MEDICAID, SELFPAY ==
[2019-02-17 20:07] VITALS: BP 115/70; PULSE 103; RESP 15; TEMP 36.7; O2SAT 97; BMI 26.5
--- NOTE | 2019-02-17 20:42 | ED.VISSUMM ---
- ER Visit Summary Date of Service: 02/17/19 Chief Complaint: Bilateral ear pain and drainage History of Present Illness: The patient is a 38 F history of prior otitis externa. Patient states in the last day or so she has had some discomfort and drainage from both ears. No fever or chills. She had this a year ago and responded well to Ciprodex eardrops. Physical Examination: Well-appearing female no acute distress. Vital signs are stable and afebrile. H EENT examination unremarkable except both ear canals are slightly red and inflamed. They are wide open they do not need debra. TMs appear to be unremarkable. Posterior pharynx normal. Neck nontender one solitary lymph node on the left. Lungs clear to auscultation. Heart regular rhythm no murmur. Otherwise exam unremarkable. Test Results: None Emergency Department Course and Treatment: Patient started on Ciprodex drops. Treatment Plan: Ciprodex twice daily. Amoxicillin 3 times daily. Follow-up with ENT as needed. Disposition: Discharge Impression: Bilateral otitis externa This note was generated with [employer] dictation software. It may contain incorrect words, spelling, and punctuation that were not noted in review of the chart prior to signing ED Disposition - Plan for ED Patient: Referrals: Care Physician,No Primary [Primary Care Provider] -
--- NOTE | 2019-02-17 20:45 | ED.DEP ---
ED Disposition - Plan for ED Patient: Disposition: Home or Assisted Living Instructions: EXTERNAL EAR INFECTION (Adult) Prescriptions: Amoxicillin 500 mg PO TID #30 tab Prescription Printed Ciprofloxacin HCl/Dexameth [Ciprodex Otic Suspension] 4 drp OTIC (EAR) BID #1 bottle Prescription Printed Referrals: Jeffrey Gresham MD [STAFF PHYSICIAN] - 1 Week if not improving Additional Instructions: Tylenol and/or Motrin for pain. Follow-up with ENT if not improving. 4 drops each ear twice a day. Amoxicillin until 3 times a day.
[2019-02-17] MEDS: AMOXICILLIN 500 MG CAPSULE PO (21:05)
[2019-02-17] MEDS: Ciprofloxacin 0.3% 2.5ml Bottle 2 DRP OTIC (21:05)
[2019-02-17 21:10] VITALS: RESP 14
== END 2019-02-17 21:10 | disposition home or self-care (01) ==
PROVIDERS: Emergency Provider Emergency Medicine
DX: H60.93 Unspecified otitis externa, bilateral (principal); Z72.0 Tobacco use
CPT/HCPCS: 99283

== ENCOUNTER → 2019-04-30 12:56 | Outpatient (CLI) | payer MEDICAID, SELFPAY ==
[2019-04-30 12:48] VITALS: BMI 26.6
--- NOTE | 2019-04-30 12:57 | RAD_ITS ---
STUDY: X-RAY - RIGHT WRIST REASON FOR EXAM: Chronic pain. TECHNIQUE: 3 view(s) of the wrist were obtained. COMPARISON: None. FINDINGS: Normal visualized distal radius and ulna. Normal radiocarpal articulation. Normal distal radioulnar articulation. Normal carpal bones. Normal carpal articulations. Normal carpometacarpal articulation of the thumb. Normal second through fifth carpometacarpal articulations. Normal visualized metacarpal bones. The soft tissue structures are unremarkable. RAD/Wrist min 3 Views IMPRESSION: Normal x-ray examination of the right wrist. Electronically Signed: Horace Jennings MD at 13:45 EST Tel , Service support ,
== END ==
PROVIDERS: Referring Provider Orthopaedic Surgery; Visit Provider Orthopaedic Surgery
DX: M25.531 Pain in right wrist (principal)
CPT/HCPCS: 73110

== ENCOUNTER 2019-05-09 08:00 | Outpatient (RCR) | payer MEDICAID, SELFPAY ==
[2019-04-30 12:48] VITALS: BMI 26.6
--- NOTE | 2019-05-07 08:51 | HP.OTEVAL_ITS ---
Patient's Visit Information LAURA DENSON is a 38 year old F, referred to Occupational Therapy by Ashley Victor DO, with a diagnosis of R wrist pain; scaphoid pain.. Date of Evaluation: 05/07/19 Occupational Therapist: Lorin Epstein, OTR/L - Subjective Subjective: Arrived and noted that pain in right wrist has been ongoing for the last last year. She unsure what caused and what actions/tasks are continuing to casue the wrist related pain. 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 She is right hand dominant. - ADLs Comments: Notes that she is unsure what activities are painful but when it starts hurting it lingers for a while. - Pain right wrist 1 Pain Intensity Range: 0, 8 - Objective Objective/Observation: skin closed and of good integrity; increased tenderness around scaphoid area and base of CMC. Decreased strength of R dominant hand when compared to L dominant hand. - ROM Wrist: flexion R 0-76, L WFL; ext R 0-54, WFL MP: R 0-55, L WFL IP: R -25-0-68, L WFL Radial Abduction: R 0-38, L WFL MP: WFL PIP: WFL DIP: WFL ROM Comments: radial dev R 0-15, L WFL. ulnar dev R 0-30, L WFL - Strength [employer]: R 40, L 44 Lateral Pinch: R 8, L 13 Tripod Pinch: R 6, L 16 Tip-to-Tip Pinch: R 6, L 8 - Sensation Thumb: R 2.83, L 2.83 Index: R 2.83, L 2.83 Middle: R 2.83, L 2.83 Ring: R 2.83, L 2.83 Little: R 2.83, L 2.83 - Quick DASH-Disab of Arm,Shoulder& Hand Quick DASH Score: 11.6650 - Goals Goal:: Laura to increased R wrist strrength by 15-20 lbs to promote strength and stability of R wrist and decrease symptoms of pain with ADl/IADls by d/c. Goal:: Laura to be (I) to complete pain management techniques topromote decreased symptoms of discomofrt in R wrist 4/5 trials 80% of th time by d/c. Goal:: Laura to be (i) to complete correct workplace set up and ergonomics as well as wrist ergonomics to promote wrist alignment and positioning during ADL/AIDls to decrease pain and risk of reinjury 4/5 trials 80% of the time by d/c. Goal:: Laura to be (I) with all ADL/AIDLs without increased in R wrist pain 4/5 trials 80% of the time by d/c. Goal:: Laura to be mod I to complete daily HEP to promote strength and stability of R wrist and hand to decrease pain and promote ROM with additional provision for pain management as needed 4/5 trials 80% of the time by d/c. - Rehabilitation General Assessment: Laura arrived to session and OT evaluation completed in this date of 05/07/19. Laura has experience increased right dominant wrist pain over the last year. She is unsure of cause of injury provoking pain. She has completed nerve conduction test and carpal tunnel has been ruled out. She exhibits increase explain with palpation around thumb area and scaphoid region. Decreased strength observed with strengthening testing and further skilled OT warranted for 2x weekly appointments to promote increased strength, stability, and pain management as well as ergonomic education and body mechanics to promote returning to PLOF and decreasing risk of further injury of R dominant wrist. Rehabilitation Potential: Good - Anticipated Interventions Anticipated Interventions: A/AAROM/PROM, Strengthening, Scar Care, Massage, Wound Care, Modalities, Orthoses, Joint Protection/Energy Conservation, Ergonomic Education, Dynamic Sitting Balance, Fine Motor Coord/Dylon, ADL Training, Caregiver Training, Home Program Other Interventions: May potentially benefit from splint if conservative treatments do not work; insurance covergae limited for split. KT tape to be trials first. - Visit Plan Frequency: 2x /Week Duration: 4 Weeks General Plan: Laura to completed skilled Ot services to promote strength, stability, pain management, and ergonomic training of R dominant wrist to decreased discomfort and promote normal use of R wrist for all ADl/IADls by d/c. TEXT: Thank you for the opportunity to evaluate your patient. For Medicare and Medicare HMO plans, please review the plan of care and approve it. It will need to be FAXED BACK to us at [phone] for Medicare purposes. Please let me know if there are questions or concerns regarding this plan of care. Physician Signature: Date:
--- NOTE | 2019-06-04 09:27 | HP.OT.NRP ---
HP - Discharge Summary - Patient Information LAURA DENSON was seen in my office for initial evaluation on 05/07/19. The following Plan of Care was established for this patient: Initial Frequency: 2x /Week Initial Duration: 4 Weeks Plan: continue POC. - Anticipated Interventions Anticipated Interventions: A/AAROM/PROM, Strengthening, Scar Care, Massage, Wound Care, Modalities, Orthoses, Joint Protection/Energy Conservation, Ergonomic Education, Dynamic Sitting Balance, Fine Motor Coord/Dylon, ADL Training, Caregiver Training, Home Program Other Interventions: May potentially benefit from splint if conservative treatments do not work; insurance coverage limited for split. KT tape to be trials first. This patient was last seen in our office 05/10/19. Pertinent comments regarding their Occupational therapy will appear below: Last seen in clinic on 05/10/19. She was seen for initial evaluation and one appointment. She was to continue plan of care but has not returned for further follow up. She will be d/c'd at this time. At this point I will be discontinuing this patient from occupational therapy. I would be happy to see this patient again in the future if found appropriate by the physician. Thank you! Lorin Epstein, OTR/L
== END 2019-05-09 19:00 | disposition home or self-care (01) ==
LOC: OT 08:00
PROVIDERS: Referring Provider Orthopaedic Surgery; Visit Provider Orthopaedic Surgery
DX: M25.531 Pain in right wrist (principal)
CPT/HCPCS: 97166; 97530

== ENCOUNTER 2019-09-19 18:03 | Emergency (ER) | payer MEDICAID, SELFPAY ==
[2019-04-30 12:48] VITALS: BMI 26.6
[2019-09-19 18:05] VITALS: BP 141/97; PULSE 81; RESP 16; TEMP 36.6; O2SAT 97; BMI 29.7
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
--- NOTE | 2019-09-19 18:31 | ED.DEP ---
ED Disposition - Plan for ED Patient: Instructions: ED Burn Wound Check FU Infec Prescriptions: Cephalexin [Keflex] 500 mg PO Q6 #40 cap Transmission Status: Pending to [facility][id number] Referrals: Philip Lorenz III, MD [STAFF PHYSICIAN] -
[2019-09-19] MEDS: Cephalexin 250 MG Capsule 500 MG PO (18:39)
[2019-09-19] MEDS: Diphth,Pertuss(Acell),Tet Vac 0.5 ML Vial IM (18:39)
[2019-09-19 19:02] VITALS: RESP 16
== END 2019-09-19 19:03 | disposition home or self-care (01) ==
LOC: ED 18:48
PROVIDERS: Emergency Provider Emergency Medicine
DX: T24.031A Burn of unspecified degree of right lower leg, initial encounter (principal); F17.200 Nicotine dependence, unspecified, uncomplicated
CPT/HCPCS: 90471; 90715; 96372; 99283

== ENCOUNTER 2020-01-28 21:24 | Emergency (ER) | payer MEDICAID, SELFPAY ==
[2020-01-28 21:24] VITALS: BP 123/90; PULSE 83; RESP 14; TEMP 36.8; O2SAT 100; BMI 29.9
[2020-01-28 22:02] LABS: Bacteria 0 SEEN /hpf (None Seen); Mucous, Urine 0 SEEN /hpf (<or=2+); Red Blood Cells-Urine 0 SEEN /hpf (0-5)
[2020-01-28 22:05] LABS: Color, Urine Yellow (Yellow); Glucose, Dipstick Normal (Normal); Ketone-Dipstick Negative (Negative); Leukocyte Esterase-Dipstick 25 /ul (Negative); Nitrite-Dipstick Negative (Negative); Occult Blood-Urine 10 /ul (Negative); Protein-Dipstick Negative (Negative); Specific Gravity, Urine 1.025 (1.002-1.030); Urine Bilirubin Dipstick Negative (Negative); Urine Clarity Clear (Clear); Urine Urobilinogen Normal (Normal)
[2020-01-28 22:05] LABS: Absolute Lymphocyte Count 3.95 X10^3/uL (0.83-4.51); Absolute Neutrophil Count 4.2 X10^3/uL (2.0-7.7); Basophil# 0.06 X10^3/uL; Basophil% 0.6 % (0-1); Eosinophil# 0.34 X10^3/uL; Eosinophils% 3.7 % (0-5); Hematocrit 42.5 % (37-47); Hemoglobin 13.7 g/dL (12.0-15.0); Lymphocyte # 3.95 X10^3/ul (4.0); Lymphocyte % 42.7 % (19-41); Mean Corp Hgb Conc 32.2 g/dL (32-36); Mean Corpuscular Hgb 30.5 pg (27.0-32.0); Mean Corpuscular Volume 94.7 fL (81-99); Mean Platelet Vol. 10.5 fl (6.2-12.0); Monocyte# 0.69 X10^3/uL; Monocyte% 7.5 % (0-10); NRBC Flagged by Analyzer 0 % (0-5); Neutrophil % 45.3 % (47-70); Platelet Count 236 K/mm3 (150-450); RBC Distribution Width CV 13.9 % (11.6-14.6); RBC Distribution Width SD 48.3 fl (35.1-43.9); Red Blood Count 4.49 M/mm3 (4.2-5.4); White Blood Count 9.3 K/mm3 (4.4-11.0)
[2020-01-28 22:13] LABS: Internal QC Validated? YES +Cl - CLEAR BKGD; Pregnancy, Serum, hCG Quali. NEGATIVE Negative
[2020-01-28 22:17] LABS: Anion Gap 5 (5-15); BUN 13 mg/dL (7-18); BUN/Creat Ratio 17.2 RATIO (10-20); Calcium,Total 8.7 mg/dL (8.5-10.1); Chloride 111 mmol/L (98-107); Creatinine, Serum 0.76 mg/dL (0.55-1.02); EST Glomerular Filtration Rate 91 mL/min (>60); Est Glom Filt Rate - Afr Amer 110 mL/min (>60); Estimated Creatinine Clearance 89.43 ml/min; Glucose 102 mg/dL (74-106); Potassium 3.7 mmol/L (3.5-5.1); Sodium Level 142 mmol/L (136-145)
[2020-01-28 22:24] LABS: Squamous Epithelial Cells - UA 0-5 SEEN /hpf (5-10); White Blood Cells 5-10 SEEN /hpf (0-5)
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
[2020-01-28] MEDS: Ketorolac 30 MG/ML Syringe IV (23:05)
[2020-01-29 00:07] VITALS: BP 120/78; PULSE 74; RESP 16; O2SAT 99
[2020-01-29 00:09] VITALS: BP 120/74; PULSE 74; RESP 16; O2SAT 99
== END 2020-01-29 00:14 | disposition home or self-care (01) ==
PROVIDERS: Emergency Provider Emergency Medicine
DX: N83.209 Unspecified ovarian cyst, unspecified side (principal); F17.200 Nicotine dependence, unspecified, uncomplicated
CPT/HCPCS: 74177; 80048; 81001; 84703; 85025; 96374; 99283; Q9967; A4216

== ENCOUNTER 2020-08-17 21:37 | Emergency (ER) | payer MEDICAID, SELFPAY ==
[2020-08-17 21:38] VITALS: BP 127/72; PULSE 109; RESP 16; TEMP 36.1; O2SAT 97; BMI 28.8
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
[2020-08-17 23:36] VITALS: BP 118/68; PULSE 72; RESP 18; O2SAT 98
== END 2020-08-17 23:40 | disposition home or self-care (01) ==
PROVIDERS: Emergency Provider Emergency Medicine
DX: S50.02XA Contusion of left elbow, initial encounter (principal); F17.200 Nicotine dependence, unspecified, uncomplicated; X58.XXXA Exposure to other specified factors, initial encounter
CPT/HCPCS: 99282

== ENCOUNTER 2020-10-08 07:43 | Day surgery (SDC) | payer MEDICAID, SELFPAY ==
[2020-09-03 14:12] VITALS: BMI 28.8
[2020-10-08] VITALS (7 sets, daily range): BP systolic 92–127; BP diastolic 62–78; PULSE 62–83; RESP 16–18; TEMP 36.1–36.5; O2SAT 95–100; BMI 29.6
--- NOTE | 2020-10-08 | LES_PTH ---
PATIENT: LAURA DENSON [place]: [facility] [place][id number] AGE/SX: 39/F ROOM: RE10/08/[address]: Dr. Blaze Hall MD : 1980 BED: DIS: 10/08/2020 SPEC #: [id number] RECD: 10/08/20 09:29 STATUS: SHANICE JAK #: [id number] CHAYO: 10/08/20 00:[address]: Blaze Hall DEPT: SURGICAL PATHOLOGY RECD BY: Soco Villasenor ENTERED: 10/08/20 10:05 SP TYPE: Lesion OTHR DR: No Primary Care Phys Tissues: A - Skin of face, NOS B - Skin of face, NOS Procedures: Frozen Section (charge) Surgery Specimen Level IV HEADER OPERATION: Excision infected cystic lesion preauricular area PRE-OP DIAGNOSIS: 0.9 cm infected cystic lesion left cheek TISSUE SUBMITTED: A - 0.9 cm infected cystic lesion left periauricular area, FS, B - Cystic lesion left periauricular area, suture at 12 o?clock FROZEN SECTION DIAGNOSIS A. Left cheek lesion, biopsy: Intradermal nevus. LANI:malinda 10/08/2020 MICROSCOPIC DIAGNOSIS A. Left cheek lesion, biopsy: Intradermal nevus, extending up to the deep margin of the specimen. B. Cystic lesion left preauricular area, excisional biopsy: Residual intradermal nevus, completely excised. Focal chronic inflammation, foreign body giant cell reaction, dystrophic calcification and metaplastic ossification, may represent ruptured epidermal inclusion cyst. LANI:malinda 10/09/2020 MICROSCOPIC DESCRIPTION Slides are reviewed. GROSS DESCRIPTION A - Received fresh for frozen section diagnosis labeled with the patient's name is a specimen designated cystic lesion left cheek. The specimen consists of a piece of jones-white skin measuring 0.9 x 0.7 x 0.2 cm. The specimen is inked, bisected and submitted entirely for frozen section diagnosis in one cassette. B - Received in fixative is one container labeled with the patient's name and designated cystic lesion left periauricular area, suture at 12 o'clock. The specimen consists of a fan-shaped piece of jones-white skin measuring 1.1 x 0.7 cm and up to 0.5 cm in thickness. The specimen is oriented by a suture identified as 12 o?clock. The specimen is inked as follows: 12 to 3 o?clock - black, 3 to 6 o?clock - blue, 6?to 9 o?clock - green and 9 to 12 o?clock - yellow. A focal area of ulceration is noted on the surface consistent with site of specimen A. The specimen is serially sectioned and submitted entirely in one cassette. / LANI:malinda 10/08/20 TC:1 CPT: 65905 x2, [id number]
[2020-10-08] MEDS: Lactated Ringers 1,000 ML 100 ML IV (08:06)
--- NOTE | 2020-10-08 09:05 | PCM.HP.BLA ---
History and Physical This documented was entered in error. It is a cancelled document.
--- NOTE | 2020-10-08 09:06 | PCM.HP.BLA ---
History and Physical HISTORY OF PRESENT ILLNESS 39 year old woman presents with a recent cystic lesion infection left cheek that required antibiotic therapy. The cystic lesion became swollen then spontaneously drained on its own. She denies fever. She denies trauma. He presents at this time for further evaluation and treatment. PAST MEDICAL HISTORY Neoplasm of skin of left cheek UTI (urinary tract infection) PAST SURGICAL HISTORY ALLERGIES No Known Allergies MEDICATIONS NK FAMILY HISTORY Father - Lung cancer, Diabetes SOCIAL HISTORY Smoking Status: Current every day smoker alcohol intake: never substance use type: does not use REVIEW OF SYSTEMS General - Denies fever, fatigue, and weight loss. Eyes - Denies cataracts and glaucoma. ENT - Denies nasal congestion and sore throat. Had swollen glands in the left neck. Endocrine - Denies excessive thirst and urination. Skin - Denies skin cancer. She has a cystic lesion left cheek that became infected and spontaneously drained. Musculoskeletal - Denies joint pain, joint stiffness, weakness of muscles and joints, back pain, and arthritis. Neuro - Denies headaches. Cardiovascular - Denies chest pain, fatigue, and shortness of breath with exertion. Psych - Denies anxiety and depression. Respiratory - Denies chronic cough and shortness of breath. Patient is a smoker. Gastrointestinal - Denies nausea, vomiting, diarrhea, and constipation. Hematologic - Denies abnormal bruising and bleeding. Genitourinary - Denies hematuria and urinary frequency. PHYSICAL EXAMINATION General - Alert and Oriented HEENT - PERRL. EOMI. Throat is clear. On the left cheek is a cystic lesion that became infected. Measures 0.9 cm. No purulent drainage noted. The lesion became swollen and spontaneously drained. Neck - Supple and nontender. No cervical adenopathy. Lungs - Clear to auscultation. Heart - Regular rate and rhythm. Abdomen - Soft and nondistended. Extremities - FROM. No axillary adenopathy. Radial pulses are palpable. Neuro - CN II-XII grossly intact. Psych - Normal mood and affect. ASSESSMENT 1. 0.9 cm infected cystic lesion left cheek that is stable at the moment. 2. Smoker. PLAN For the infected cystic lesion left cheek, recommend excision of this mass and send it to Pathology for analysis to rule out carcinoma. If carcinoma is seen, then reconstruction would be with a skin flap. Surgery would be done an outpatient basis under general anesthesia. He had been on antibiotics for this in the recent past. Will renew his antibiotics in preparation to the surgery. Patient was informed of the risks and complications of the procedure including alternatives to surgery. These were discussed with the patient personally. Patient voices understanding and wishes to proceed. Some of the risks and complications were included in a form from the [employer]. Encouraged patient to stop smoking as it may have deleterious effects on wound healing. We discussed the current risks associated with COVID-19. While it is understood that there is a community spread of COVID-19, the risk of fabian COVID-19 while at [facility] ([facility]) is very low; however, the risk cannot be completely mitigated because of the community spread of the disease. We discussed in detail the risk of exposure to and/or potential harm posed by the COVID-19 virus with having a surgery/procedure at this time versus the risk of delaying the surgery/procedure. It is not possible to know either the risk of delaying the surgery or procedure or chance of getting an infection with perfect accuracy, but a joint decision was made to proceed at this time with the scheduled surgery/procedure as indicated on the consent form. Patient was notified that we will need to comply with any screening or testing [facility] wishes to perform or that surgery may be delayed for any positive results. Discussed with the patient that I was tested for COVID-19 on 10/24/19 which was negative and on 11/07/19 which was negative and on 11/21/19 which was negative and on 12/05/19 which was negative and on 12/19/19 which was negative and on 01/09/20 which was negative and on 01/30/20 which was negative and on 03/05/20 which was negative and on 03/26/20 which was negative and on 04/14/20 which was negative. ? My testing regimen at this time is to be COVID-19 tested every 2 weeks or so.? I received the COVID-19 vaccine (Moderna) on 04/22/20 and the second vaccine dose was received on 05/20/20.? When I was hospitalized on 06/22/20 I was tested for COVID-19 which was negative.? I was also? tested for COVID-19 on 07/07/20 which was negative and on 08/03/20 which was negative. Procedure Criteria Procedure Type:?Elective COVID Risk Discussion: The surgeon/proceduralist and patient have discussed in detail the risk of exposure to and/or potential harm posed by the COVID-19 virus with having a surgery/procedure at this time versus the risk of delaying the surgery/procedure.? It is not possible to know either the risk of delaying the surgery or procedure or chance of getting an infection with perfect accuracy, but a joint decision was made between the patient and the surgeon/proceduralist to proceed at this time with the scheduled surgery/procedure as indicated on the consent form.
[2020-10-08] MEDS: Lidocaine 1% /Epi 1:100 (20ml) 20 ML Vial (09:21)
[2020-10-08] MEDS: Mupirocin Ointment 22gm Tube 1 APPLIC (09:58)
--- NOTE | 2020-10-08 10:08 | PCM.OPRPT ---
Problems Associated Problem List Diagnoses (1) Neoplasm of skin of left cheek: (2) Infection of skin: (3) Intradermal nevus of face: (4) Smoker: Report of Operation Date of Procedure: 10/08/20 Pre-Operative Diagnosis: 1. 0.9 cm chronically infected cystic lesion left cheek. 2. Smoker. Post-Operative Diagnosis: 1. 0.9 cm chronically infected cystic lesion left cheek. 2. Intradermal nevus left cheek. 3. Smoker. Surgery/Procedure Performed:: Excision chronically infected cystic lesion and intradermal nevus left cheek with rhomboid transposition skin flap reconstruction (2.42 cm2). Description of Surgical Findings:: 39 year old woman presents with a recent cystic lesion infection left cheek that required antibiotic therapy. The cystic lesion became swollen then spontaneously drained on its own. She denies fever. She denies trauma. Patient was informed of the risks and complications of the procedure including alternatives to surgery. These were discussed with the patient personally. Patient voices understanding and wishes to proceed. Some of the risks and complications were included in a form from the [employer]. Encouraged patient to stop smoking as it may have deleterious effects on wound healing. Frozen section left cheek - intradermal nevus and no carcinoma seen. Surgeon: Blaze Hall manager of medical: None Type of Anesthesia: Local MAC (xylocaine with epinephrine and IV sedation.) Specimen's removed: 1. Lesion left cheek to Pathology as a frozen section. 2. Chronically infected cystic lesion left cheek to Pathology. Drains: None. Estimated Blood Loss (mL): 5. Description of Procedure: Patient was taken to OR in supine position and was given IV sedation. The left side of the face was prepped and draped in the usual fashion. SCD's were placed for DVT prophylaxis. Perioperative antibiotics were given intravenously. The lesion left cheek was infiltrated with xylocaine and epinephrine. After waiting 5 minutes for the anesthetic to take effect, I excised the lesion left cheek in an intradermal fashion with a scalpel and sent it to Pathology as a frozen section for analysis to rule out carcinoma. Frozen section came back as an intradermal nevus and no carcinoma seen. At the base of the excision was a cystic lesion with surrounding scar tissue indicative of the chronicity of the cystic lesion with intermittent infection. Some of the cystic lesion was included with the frozen section thus leaving an indentation. Therefore the remaining cystic lesion needed to be excised which was done in a rhomboid fashion with a 1 mm margin in all directions thus making it a 1.1 cm excision. A suture was marked at the 12 oclock position for pathology orientation. The lesion was then sent to Pathology for analysis to rule out carcinoma. A lot of indurated scar tissue was seen in the subcutaneous tissue that was excised as well. A rhomboid flap was designed adjacent to the defect inferiorly. Incisions were made and the flap was elevated on a subcutaneous pedicle and easily transposed into the defect with minimal tension and minimal distortion. Hemostasis was obtained with electrocautery. The rhomboid flap was transposed into the defect and the wound was closed in a layered fashion with 5-0 Monocryl interrupted sutures for the deep dermis and subcutaneous tissue. The skin was approximated with 6-0 Prolene simple interrupted sutures. Steri-strips were applied followed by antibiotic ointment. The size of the defect and the size of the flap needed to close the defect was 2.42 cm2. Patient tolerated the procedure well and was sent to PACU in satisfactory condition. Patient will be sent home on antibiotics and pain medication. She will keep her head elevated during the initial postoperative period. Patient will followup in a week for a wound check and for discussion of the pathology report and for removal of the sutures. Grafts/Implants Used: None. Complications None. Admit VTE Documentation VTE Present on Admission: No VTE Mechan Device Prophylaxis: SCD's VTE Pharm Prophylaxis ordered?: No Addendum Addendum: Surgery Charges CPT - 68453 ICD-10 - D49.2, L08.9, D23.30, F17.200
--- NOTE | 2020-10-08 10:09 | PCM.DC ---
Discharge Instructions Diet Discharge Diet: No restrictions Activity Discharge Activity: May Shower (in two days) and - (keep head elevated. no heavy lifting.) May shower in (days): 2 May resume sexual activity in: No Restrictions Ice area for (Minutes): 5 (as needed for facial swelling.) Weight Bearing Status: Weight bearing as tolerated Lifting Restrictions: 20 lbs. Keep extremity elevated above heart level: - (elevate head.) Dressing / Incision Call your doctor if your incision/area has: Continuous Slow Oozing, Sudden Increased Bleeding, Increased Pain/ Swelling, Increased Redness, Foul Smelling Discharge and Swelling at the incision site Call your doctor if you observe: Fever of 101 or Higher, Coldness, Increased Pain, Shortness of breath, Chest pain, Calf discomfort and Uncontrolled pain Cleanse incision/area with: - (may get incision wet in the shower in two days.) Follow Up Care Please Follow Up With: Blaze Hall MD When: one week. call [phone] for appt. Test Results: Test results from this visit will be discussed in further detail at your follow-up appointment, if applicable. Discharge Plan Admission Attending Provider: Blaze Hall Primary Care Provider: Care Physician,Fawn Primary Discharge Orders/Prescriptions Prescriptions: New clindamycin HCl [Cleocin HCl] 300 mg capsule 300 mg PO TID Qty: 15 RF: 0 oxycodone-acetaminophen [Percocet] 5-325 mg tablet 1 tab PO Q6H PRN (Reason: pain (scale score 7-10)) 5 Days Qty: 20 RF: 0 Referrals / Follow Up: Care Physician,No Primary [Primary Care Provider] - Disposition Disposition (needs filled in before D/C Order can be placed): Home, self care
== END 2020-10-08 11:15 | disposition home or self-care (01) ==
LOC: SDC 07:43 → AC 07:43
PROVIDERS: Referring Provider Surgery; Visit Provider Surgery
PROC: (CPT 14040; principal; 2020-10-08 08:50)
DX: D49.2 Neoplasm of unspecified behavior of bone, soft tissue, and skin (principal); F17.200 Nicotine dependence, unspecified, uncomplicated; D23.39 Other benign neoplasm of skin of other parts of face; L08.9 Local infection of the skin and subcutaneous tissue, unspecified
CPT/HCPCS: 00300; 14040; 87426; 88305; 88331; C9803; J7120

== ENCOUNTER 2024-01-05 12:46 | Emergency (ER) | payer SELFPAY ==
[2024-01-05 12:46] VITALS: BP 129/72; PULSE 74; RESP 16; TEMP 36.6; O2SAT 97; BMI 32.0
[2024-01-05 16:46] VITALS: BP 118/73; PULSE 90; RESP 16; O2SAT 99
--- NOTE | 2024-01-05 18:24 | EDS_ITS ---
HPI History of Present Illness Chief Complaint: Dental Detail of Chief Complaint: Dental pain, sensitivity to coffee, hot beverages Informant: patient Onset/Context/Timing Onset: Days Context: Sudden Onset Timing: Continuous Quality: Pain Location: Either tooth #16 or 15 she also has numerous dental caries involving tooth, Current Severity: Mild Maximum Severity: Severe Relieved by: - Associated Symptoms Assocated Symptom - Dental: hot sensitivity; Negative for fever, jaw swelling, face swelling or cold sensitivity Narrative Narrative: Nothing patient is a 43-year-old female. She contact her dentist. Has a dental appointment on Monday. The dentist recommended she come to the emergency room for antibiotics. She denies fever, chills night sweats. Denies atraumatic fever, heart murmur, SBE or being immune suppressed. She denies difficulty opening closing her mouth completely. She does complain of some facial swelling. She denies facial redness. She is on no immunosuppressive meds. She denies change in voice. Denies difficulty swallowing. 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 UTI (urinary tract infection) Home Medications ?Medication ?Instructions ?Recorded ?Last Taken ?Type hydrocodone-acetaminophen 5-325mg 1 tab PO Q6H PRN PRN Pain 3 days 01/05/24 Unknown Rx 5mg-325mg #10 TABLETS naproxen 500 mg tablet 500 mg PO BID #14 tabs 01/05/24 Unknown Rx penicillin V potassium 500 mg 500 mg PO 4X/DAY #40 tabs 01/05/24 Unknown Rx tablet Allergy/AdvReac Type Severity Reaction Status Date / Time No Known Allergies Allergy Verified 01/05/24 12:48 Family History Father Lung cancer Diabetes Surgical History History of excision of lesion H/O tubal ligation Hx of laparoscopy History of Social History Smoking Status: Current every day smoker tobacco type: cigarettes alcohol intake: never substance use type: does not use additional social history: Does Not Take Aspirin Does Not Take Ibuprofen ROS ROS ED Constitutional Constitutional ED: Denies chills, fever(s), subjective, sweats or weight loss Eyes Eyes: Denies blurry vision or change in vision ENT ENT ED: Denies ear pain, rhinorrhea or sore throat Cardiovascular Cardiovascular: Denies palpitations Respiratory/Chest Respiratory/Chest: Denies dyspnea or dyspnea on exertion Gastrointestinal Gastrointestinal: Denies nausea or vomiting Musculoskeletal Musculoskeletal: Denies neck pain Integumentary Denies rash EXAM Physical Exam Const Vital Signs: 01/05/24 12:46 Temperature 98 F Temperature Source Temporal Pulse Rate 74 Respiratory Rate 16 Blood Pressure 129/72 H Blood Pressure Mean 91 Pulse Ox 97 Oxygen Delivery Method Room Air Positive well nourished and well developed General Appearance ED: well developed; Negative for NAD HEENT Negative for trauma or tenderness Face and Sinus: Negative for sinuses nontender Mouth ED: Yes lips normal, Yes tongue normal, Yes salivary gland normal, No mouth trauma, No oral and palatal mucosa abnormal and No salivary gland abnormal Mouth: lips normal, tongue normal, salivary gland normal, No mouth trauma, No oral and palatal mucosa abnormal and No salivary gland abnormal Teeth and Gingiva: abnormal tooth and associated gingiva, caries, gingiva abnormal and poor dentition Throat: posterior oropharynx normal Eyes PERRL and EOMs intact bilaterally General Eye ED: Negative for pale conjunctiva or scleral icterus Neck no lymphadenopathy, supple and no JVD Neck Narrative: Trachea is midline. There is no dysphonia. There is no stridor. Lymph Lymphatic: no lymphadenopathy noted and lymphadenopathy Chest Wall inspection of chest normal and palpation of chest normal Resp normal respiratory effort, no retractions and clear to auscultation bilaterally Neuro oriented x3 Sensorium / Orientation: alert Psych Mood & Affect: tearful Skin no rashes or lesions noted and no wounds MDM MDM MDM Narrative Medical decision making narrative: With sensitivity to hot liquid patient has irreversible pulpitis. She also has dental caries and probable dental infection involving multiple teeth. Suspect tooth #14, 3, and 28. Treatment and Re-Evaluation Narrative: Patient has dental caries, dental abscess and irreversible pulpitis. She was treated in the emergency room with antibiotics and NSAIDs that she has no contraindication. She is given a prescription for open analgesia since she drove herself. She was instructed to see the dentist and that the treatment regarding the irreversible pulpitis is either a root canal or extraction of the tooth. Discharge Plan Triage Chief Complaint: Dental ED Provider: Arthur Ruvalcaba Dx/Rx/DC Orders Clinical Impression: Abscess, dental, Dental caries extending into dentin, Symptomatic irreversible pulpitis Instructions: ED Dental Abscess Prescriptions: New hydrocodone-acetaminophen 5-325 mg tablet 1 tab PO Q6H PRN PRN (Reason: Pain) 3 Days Qty: 10 0RF penicillin V potassium 500 mg tablet 500 mg PO 4X/DAY Qty: 40 0RF naproxen 500 mg tablet 500 mg PO BID Qty: 14 0RF Primary Care Provider: Care Physician,No Primary Referrals: Care Physician,No Primary [Primary Care Provider] - Dentist,Your [STAFF PHYSICIAN] - Keep Chel appointment Activity Restrictions/Additional Instructions: If you have difficulty opening your mouth or difficulty swallowing liquids return to the emergency department immediately Print Language: Occitan Disposition Disposition: Home, Self Care
[2024-01-05] MEDS: Naproxen 500 MG Tablet PO (18:43)
[2024-01-05] MEDS: Penicillin Vk 250 MG Tablet 500 MG PO (18:43)
[2024-01-05 18:47] VITALS: BP 110/62; PULSE 69; RESP 12; TEMP 36.8; O2SAT 98
== END 2024-01-05 18:48 | disposition home or self-care (01) ==
LOC: ED 18:42
PROVIDERS: Emergency Provider Emergency Medicine; Visit Provider Emergency Medicine
DX: K04.02 Irreversible pulpitis (principal); K04.7 Periapical abscess without sinus; K02.9 Dental caries, unspecified; F17.210 Nicotine dependence, cigarettes, uncomplicated; Z97.2 Presence of dental prosthetic device (complete) (partial)
CPT/HCPCS: 99283